=== PATIENT | female | born 1945 | race Caucasian/White ===

== ENCOUNTER 2019-09-30 07:08 | Outpatient (CLI) | payer MEDICARE, OTHER, SELFPAY ==
[2019-09-30 08:00] LABS: Add Urine Microscopic? YES; Appearance Urine Clear (Clear); Bacteria Urine Trace /hpf; Bilirubin Urine Negative (Negative); Blood Urine Negative (Negative); Color Urine Yellow (Yellow); Glucose Urine UA Negative (Negative); Ketones Urine Negative (Negative); Leukocyte Esterase Ur 2+ LEU/UL (NEGATIVE); Nitrate Urine Negative (Negative); Protein Urine Negative (Negative); RBC Urine 0-2 /hpf (0-2); Specific Grav Ur 1.012 (1.001-1.035); Squamous Epithelial Cell Urine Rare /hpf (Few); Transitional Epi Cells Urine Rare /hpf (None Seen); Urobilinogen Urine Negative mg/dL (<2.0); WBC Urine 21-30 /hpf (0-3)
[2019-09-30 08:16] LABS: Alanine Aminotransferase 38 U/L (4-35); Albumin Level 4.6 g/dL (3.5-5.1); Alkaline Phosphatase 49 U/L (38-126); Aspartate Amino Transferase 29 U/L (14-36); Bilirubin,Total 0.5 mg/dL (0.2-1.3); Blood Urea Nitrogen 19 mg/dL (7-17); Carbon Dioxide 30 mmol/L (22-30); Chloride 96 mmol/L (98-107); Cholesterol 217 mg/dL (0-200); Estimated Glomerular Filt Rate 54; Glucose 99 mg/dL (65-105); HDL Direct 48 mg/dL; Sodium 137 mmol/L (137-145); Triglycerides 126 mg/dL (<150)
[2019-09-30 08:27] LABS: LDL Cholesterol Direct 130 mg/dL
[2019-09-30 08:57] LABS: Hemoglobin A1C 5.2 % (<5.7)
[2019-10-02 05:45] LABS: Homocysteine 12.7 umol/L (<10.4)
== END 2019-09-30 07:09 | disposition home or self-care (01) ==
PROVIDERS: PCP Internal Medicine; Visit Provider Internal Medicine
DX: I10 Essential (primary) hypertension (principal); E11.9 Type 2 diabetes mellitus without complications; E78.2 Mixed hyperlipidemia; Z79.899 Other long term (current) drug therapy
CPT/HCPCS: 36415; 80048; 80061; 80076; 81001; 83036; 83090; 84443

== ENCOUNTER 2019-10-21 10:38 | Outpatient (CLI) | payer MEDICARE, OTHER, SELFPAY ==
[2019-10-21 10:57] LABS: Basophils Absolute Auto 0.1 K/mm3 (0.0-0.1); Basophils Percent Auto 0.8 % (0.2-1.2); Eosinophils Absolute Auto 0.2 K/mm3 (0-0.3); Eosinophils Percent Auto 2.5 % (0-4.4); Hematocrit 45.5 % (37.0-47.0); Hemoglobin 14.9 g/dL (12.0-15.0); Immature Granulocyte Absolute 0.04 K/mm3 (0.00-0.031); Immature Granulocyte Percent A 0.6 % (0-0.5); Lymphocytes Absolute Auto 2.18 K/mm3 (0.9-3.2); Lymphocytes Percent Auto 30.2 % (18.3-44.2); Mean Corpuscular HGB Conc 32.7 g/dl (32-36); Mean Corpuscular Hemoglobin 29.1 pg (26-34); Mean Corpuscular Volume 88.9 fl (80-100); Mean Platelet Volume 10.5 fl (7.4-10.4); Monocytes Absolute Auto 0.7 K/mm3 (0.1-0.6); Monocytes Percent Auto 9.7 % (2.6-8.5); Neutrophils Absolute Auto 4.1 K/mm3 (1.3-6.7); Neutrophils Percent Auto 56.2 % (45.5-73.1); Platelet Count Result 204 k/mm3 (150-375); Red Blood Count 5.12 M/mm3 (4.2-5.4); Red Cell Distribution Width 13.2 % (11.5-14.5); White Blood Count 7.2 K/mm3 (4.5-10.0)
[2019-10-21 16:47] LABS: Alanine Aminotransferase 38 U/L (4-35); Albumin Level 4.6 g/dL (3.5-5.1); Alkaline Phosphatase 56 U/L (38-126); Aspartate Amino Transferase 31 U/L (14-36); Bilirubin,Total 0.4 mg/dL (0.2-1.3); Blood Urea Nitrogen 15 mg/dL (7-17); Calcium 9.5 mg/dL (8.4-10.2); Carbon Dioxide 27 mmol/L (22-30); Chloride 98 mmol/L (98-107); Estimated Glomerular Filt Rate > 60; Glucose 104 mg/dL (65-105); Potassium 4.3 mmol/L (3.4-5.0); Sodium 138 mmol/L (137-145)
[2019-10-26 12:40] LABS: BCR/abl Prior Result See Report
[2019-10-26 13:28] LABS: BCR/abl P190 Not Detected; BCR/abl P210 Not Detected
[2019-10-26 13:29] LABS: BCR/abl P190 Chg YES; BCR/abl P210 Chg YES
== END 2019-10-21 10:39 | disposition home or self-care (01) ==
LOC: ANHLAB 10:40
PROVIDERS: PCP Internal Medicine; Visit Provider Internal Medicine Hematology & Oncology
DX: C92.10 Chronic myeloid leukemia, BCR/ABL-positive, not having achieved remission (principal)
CPT/HCPCS: 36415; 80053; 81206; 81207; 85025

== ENCOUNTER 2020-02-03 09:46 | Outpatient (CLI) | payer MEDICARE, OTHER, SELFPAY ==
[2020-02-03 10:51] LABS: Blood Urea Nitrogen 13 mg/dL (7-17); Calcium 9.6 mg/dL (8.4-10.2); Carbon Dioxide 30 mmol/L (22-30); Chloride 101 mmol/L (98-107); Cholesterol 203 mg/dL (0-200); Estimated Glomerular Filt Rate 54; Glucose 114 mg/dL (65-105); HDL Direct 45 mg/dL; Potassium 4.1 mmol/L (3.4-5.0); Sodium 138 mmol/L (137-145); Triglycerides 137 mg/dL (<150)
[2020-02-03 11:03] LABS: LDL Cholesterol Direct 111 mg/dL
[2020-02-03 11:06] LABS: Hemoglobin A1C 5.6 % (<5.7)
[2020-02-07 04:50] LABS: Homocysteine 11.8 umol/L (<10.4)
== END 2020-02-03 09:47 | disposition home or self-care (01) ==
PROVIDERS: PCP Internal Medicine; Visit Provider Internal Medicine
DX: R79.89 Other specified abnormal findings of blood chemistry (principal); E11.9 Type 2 diabetes mellitus without complications; E78.2 Mixed hyperlipidemia; I10 Essential (primary) hypertension
CPT/HCPCS: 36415; 80048; 80061; 83036; 83090

== ENCOUNTER 2020-02-23 08:25 | Outpatient (CLI) | payer MEDICARE, OTHER, SELFPAY ==
[2020-02-23 08:50] LABS: Basophils Percent Auto 0.6 % (0.2-1.2); Eosinophils Absolute Auto 0.2 K/mm3 (0-0.3); Eosinophils Percent Auto 2.6 % (0-4.4); Hematocrit 43.5 % (37.0-47.0); Hemoglobin 14.5 g/dL (12.0-15.0); Immature Granulocyte Absolute 0.04 K/mm3 (0.00-0.031); Immature Granulocyte Percent A 0.6 % (0-0.5); Lymphocytes Absolute Auto 1.68 K/mm3 (0.9-3.2); Lymphocytes Percent Auto 27.3 % (18.3-44.2); Mean Corpuscular HGB Conc 33.3 g/dl (32-36); Mean Corpuscular Hemoglobin 29.4 pg (26-34); Mean Corpuscular Volume 88.1 fl (80-100); Mean Platelet Volume 10.7 fl (7.4-10.4); Monocytes Absolute Auto 0.6 K/mm3 (0.1-0.6); Monocytes Percent Auto 9.1 % (2.6-8.5); Neutrophils Absolute Auto 3.7 K/mm3 (1.3-6.7); Neutrophils Percent Auto 59.8 % (45.5-73.1); Platelet Count Result 175 k/mm3 (150-375); Red Blood Count 4.94 M/mm3 (4.2-5.4); Red Cell Distribution Width 13.2 % (11.5-14.5); White Blood Count 6.2 K/mm3 (4.5-10.0)
[2020-02-23 11:51] LABS: Alanine Aminotransferase 46 U/L (4-35); Albumin Level 4.6 g/dL (3.5-5.1); Alkaline Phosphatase 56 U/L (38-126); Aspartate Amino Transferase 34 U/L (14-36); Bilirubin,Total 0.3 mg/dL (0.2-1.3); Blood Urea Nitrogen 17 mg/dL (7-17); Calcium 9.6 mg/dL (8.4-10.2); Carbon Dioxide 26 mmol/L (22-30); Chloride 100 mmol/L (98-107); Estimated Glomerular Filt Rate > 60; Glucose 117 mg/dL (65-105); Potassium 4.2 mmol/L (3.4-5.0); Sodium 138 mmol/L (137-145)
[2020-02-27 14:57] LABS: BCR/abl Prior Result See Report
[2020-02-27 15:43] LABS: BCR/abl P190 Not Detected; BCR/abl P210 Not Detected
[2020-02-27 15:44] LABS: BCR/abl P190 Chg YES; BCR/abl P210 Chg YES
== END 2020-02-23 08:26 | disposition home or self-care (01) ==
PROVIDERS: PCP Internal Medicine; Visit Provider Internal Medicine Hematology & Oncology
DX: C92.10 Chronic myeloid leukemia, BCR/ABL-positive, not having achieved remission (principal)
CPT/HCPCS: 36415; 80053; 81206; 81207; 85025

== ENCOUNTER 2020-06-01 10:10 | Outpatient (CLI) | payer MEDICARE, OTHER, SELFPAY ==
[2020-06-01 11:03] LABS: Hemoglobin A1C 5.1 % (<5.7)
[2020-06-01 11:09] LABS: Anion Gap 9 mmol/L (8-16); Blood Urea Nitrogen 14 mg/dL (7-17); Calcium 9.8 mg/dL (8.4-10.2); Carbon Dioxide 30 mmol/L (22-30); Chloride 101 mmol/L (98-107); Cholesterol 207 mg/dL (0-200); Estimated Glomerular Filt Rate > 60; Glucose 101 mg/dL (65-105); HDL Direct 45 mg/dL; Potassium 4.1 mmol/L (3.4-5.0); Sodium 140 mmol/L (137-145); Triglycerides 214 mg/dL (<150)
[2020-06-01 11:20] LABS: LDL Cholesterol Direct 109 mg/dL
[2020-06-01 21:37] LABS: Appearance Urine Clear (Clear); Bilirubin Urine Negative (Negative); Color Urine Yellow (Yellow); Glucose Urine UA Negative (Negative); Ketones Urine Negative (Negative); Leukocyte Esterase Ur 1+ LEU/UL (NEGATIVE); Nitrate Urine Negative (Negative); Protein Urine Negative (Negative); Specific Grav Ur 1.015 (1.001-1.035); Urobilinogen Urine 0.2 mg/dL (<2.0); pH Urine 7.5 (5.0-9.0)
[2020-06-01 21:38] LABS: Blood Urine Trace-Intact (Negative)
[2020-06-01 21:40] LABS: Bacteria Urine Trace /hpf; RBC Urine 0-2 /hpf (0-2); Squamous Epithelial Cell Urine Few /hpf (Few); WBC Urine 0-3 /hpf (0-3)
[2020-06-01 21:41] LABS: Add Urine Microscopic? YES
== END 2020-06-01 10:11 | disposition home or self-care (01) ==
PROVIDERS: PCP Internal Medicine; Visit Provider Internal Medicine
DX: E78.2 Mixed hyperlipidemia (principal); E11.9 Type 2 diabetes mellitus without complications; I10 Essential (primary) hypertension; Z79.899 Other long term (current) drug therapy
CPT/HCPCS: 36415; 80048; 80061; 81001; 83036; 84443

== ENCOUNTER 2020-07-27 10:38 | Outpatient (CLI) | payer MEDICARE, OTHER, SELFPAY ==
[2020-07-27 10:56] LABS: Basophils Absolute Auto 0.1 K/mm3 (0.0-0.1); Basophils Percent Auto 0.9 % (0.2-1.2); Eosinophils Absolute Auto 0.2 K/mm3 (0-0.3); Eosinophils Percent Auto 2.5 % (0-4.4); Hematocrit 43.2 % (37.0-47.0); Hemoglobin 14.2 g/dL (12.0-15.0); Immature Granulocyte Absolute 0.02 K/mm3 (0.00-0.031); Immature Granulocyte Percent A 0.3 % (0-0.5); Lymphocytes Absolute Auto 2.17 K/mm3 (0.9-3.2); Lymphocytes Percent Auto 32.1 % (18.3-44.2); Mean Corpuscular HGB Conc 32.9 g/dl (32-36); Mean Corpuscular Hemoglobin 28.8 pg (26-34); Mean Corpuscular Volume 87.6 fl (80-100); Mean Platelet Volume 10.6 fl (7.4-10.4); Monocytes Absolute Auto 0.6 K/mm3 (0.1-0.6); Monocytes Percent Auto 8.4 % (2.6-8.5); Neutrophils Absolute Auto 3.8 K/mm3 (1.3-6.7); Neutrophils Percent Auto 55.8 % (45.5-73.1); Platelet Count Result 185 k/mm3 (150-375); Red Blood Count 4.93 M/mm3 (4.2-5.4); Red Cell Distribution Width 13.1 % (11.5-14.5); White Blood Count 6.8 K/mm3 (4.5-10.0)
[2020-07-27 12:30] LABS: Alanine Aminotransferase 50 U/L (4-35); Albumin Level 4.4 g/dL (3.5-5.1); Alkaline Phosphatase 55 U/L (38-126); Anion Gap 10 mmol/L (8-16); Aspartate Amino Transferase 37 U/L (14-36); Bilirubin,Total 0.6 mg/dL (0.2-1.3); Blood Urea Nitrogen 15 mg/dL (7-17); Carbon Dioxide 28 mmol/L (22-30); Chloride 103 mmol/L (98-107); Estimated Glomerular Filt Rate > 60; Glucose 103 mg/dL (65-105); Potassium 4.2 mmol/L (3.4-5.0); Sodium 141 mmol/L (137-145)
[2020-08-02 15:04] LABS: BCR/abl Prior Result See Report
[2020-08-02 15:52] LABS: BCR/abl P190 Not Detected; BCR/abl P210 Not Detected
[2020-08-02 15:53] LABS: BCR/abl P190 Chg YES; BCR/abl P210 Chg YES
== END 2020-07-27 10:39 | disposition home or self-care (01) ==
LOC: ANHLAB 10:40
PROVIDERS: PCP Internal Medicine; Visit Provider Internal Medicine Hematology & Oncology
DX: C92.10 Chronic myeloid leukemia, BCR/ABL-positive, not having achieved remission (principal)
CPT/HCPCS: 36415; 80053; 81206; 81207; 85025

== ENCOUNTER 2020-08-03 14:38 | Outpatient (CLI) | payer MEDICARE, OTHER, SELFPAY ==
--- NOTE | ~2020-08-03 | XR_ITS ---
XR lumbar spine 6V w bending 08/03/2020 15:11 Indication: Low back pain. Procedure: 7 views lumbar spine Comparison: No prior studies for comparison. Findings: There is loss of disc height at all lumbar levels. There is levoscoliosis. Vertebral body h eights are maintained. There is advanced multilevel facet hypertrophy. Fracture or traumatic malalign ment. No significant alteration of alignment with flexion/extension. Impression: 1: Severe lumbar spondylosis with levoscoliosis. Reviewed, dictated and finalized at location A. LITIES ENGINEERING MANAGER Impression: 1: Severe lumbar spondylosis with levoscoliosis.
== END 2020-08-03 14:39 | disposition home or self-care (01) ==
PROVIDERS: PCP Internal Medicine; Visit Provider Internal Medicine
DX: M47.816 Spondylosis without myelopathy or radiculopathy, lumbar region (principal); M41.9 Scoliosis, unspecified
CPT/HCPCS: 72114

== ENCOUNTER 2020-10-17 17:00 | Outpatient (CLI) | payer MEDICARE, OTHER, SELFPAY | END 2020-10-17 17:01 | disposition home or self-care (01) | LOC: ANHCOVIDVC 17:01 | PROVIDERS: PCP Internal Medicine | DX: Z23 Encounter for immunization (principal) | CPT/HCPCS: 0001A; 91300 ==

== ENCOUNTER 2020-10-25 10:27 | Outpatient (CLI) | payer MEDICARE, SELFPAY ==
[2020-10-25 11:01] LABS: Anion Gap 5 mmol/L (8-16); Blood Urea Nitrogen 16 mg/dL (7-17); Calcium 9.4 mg/dL (8.4-10.2); Carbon Dioxide 31 mmol/L (22-30); Chloride 104 mmol/L (98-107); Cholesterol 213 mg/dL (0-200); Estimated Glomerular Filt Rate 54; Glucose 106 mg/dL (65-105); HDL Direct 52 mg/dL; Potassium 4.1 mmol/L (3.4-5.0); Sodium 140 mmol/L (137-145); Triglycerides 123 mg/dL (<150)
[2020-10-25 11:12] LABS: LDL Cholesterol Direct 121 mg/dL
[2020-10-25 11:50] LABS: Hemoglobin A1C 4.9 % (<5.7)
[2020-10-29 20:05] LABS: Apolipoprotein B 107 mg/dL (<90)
== END 2020-10-25 10:28 | disposition home or self-care (01) ==
LOC: ANHLAB 10:29
PROVIDERS: PCP Internal Medicine; Visit Provider Internal Medicine
DX: E78.2 Mixed hyperlipidemia (principal); E11.9 Type 2 diabetes mellitus without complications; I10 Essential (primary) hypertension; Z79.899 Other long term (current) drug therapy
CPT/HCPCS: 36415; 80048; 80061; 82172; 83036; 84443

== ENCOUNTER 2020-11-07 16:51 | Outpatient (CLI) | payer MEDICARE, OTHER, SELFPAY | END 2020-11-07 16:52 | disposition home or self-care (01) | LOC: ANHCOVIDVC 16:51 | PROVIDERS: PCP Internal Medicine | DX: Z23 Encounter for immunization (principal) | CPT/HCPCS: 0002A; 91300 ==

== ENCOUNTER 2021-01-18 09:19 | Outpatient (CLI) | payer MEDICARE, OTHER, SELFPAY ==
[2021-01-18 09:38] LABS: Basophils Percent Auto 0.6 % (0.2-1.2); Eosinophils Absolute Auto 0.1 K/mm3 (0-0.3); Eosinophils Percent Auto 1.9 % (0-4.4); Hematocrit 42.7 % (37.0-47.0); Hemoglobin 14.2 g/dL (12.0-15.0); Immature Granulocyte Absolute 0.02 K/mm3 (0.00-0.031); Immature Granulocyte Percent A 0.3 % (0-0.5); Lymphocytes Absolute Auto 2.11 K/mm3 (0.9-3.2); Lymphocytes Percent Auto 33.5 % (18.3-44.2); Mean Corpuscular HGB Conc 33.3 g/dl (32-36); Mean Corpuscular Hemoglobin 29.2 pg (26-34); Mean Corpuscular Volume 87.7 fl (80-100); Mean Platelet Volume 10.3 fl (7.4-10.4); Monocytes Absolute Auto 0.6 K/mm3 (0.1-0.6); Monocytes Percent Auto 9.4 % (2.6-8.5); Neutrophils Absolute Auto 3.4 K/mm3 (1.3-6.7); Neutrophils Percent Auto 54.3 % (45.5-73.1); Platelet Count Result 205 k/mm3 (150-375); Red Blood Count 4.87 M/mm3 (4.2-5.4); White Blood Count 6.3 K/mm3 (4.5-10.0)
[2021-01-18 13:58] LABS: Alanine Aminotransferase 44 U/L (4-35); Albumin Level 4.6 g/dL (3.5-5.1); Alkaline Phosphatase 45 U/L (38-126); Anion Gap 9 mmol/L (8-16); Aspartate Amino Transferase 33 U/L (14-36); Bilirubin,Total 0.5 mg/dL (0.2-1.3); Blood Urea Nitrogen 13 mg/dL (7-17); Carbon Dioxide 29 mmol/L (22-30); Chloride 101 mmol/L (98-107); Estimated Glomerular Filt Rate 54; Glucose 100 mg/dL (65-105); Potassium 4.3 mmol/L (3.4-5.0); Sodium 139 mmol/L (137-145)
== END 2021-01-18 09:20 | disposition home or self-care (01) ==
LOC: ANHLAB 09:28
PROVIDERS: PCP Internal Medicine; Visit Provider Internal Medicine Hematology & Oncology
DX: C92.10 Chronic myeloid leukemia, BCR/ABL-positive, not having achieved remission (principal)
CPT/HCPCS: 36415; 80053; 85025

== ENCOUNTER 2021-01-25 14:05 | Outpatient (CLI) | payer MEDICARE, OTHER, SELFPAY ==
[2021-01-30 08:26] LABS: BCR/abl Prior Result See Report
[2021-01-30 09:13] LABS: BCR/abl P190 Not Detected; BCR/abl P210 Not Detected
[2021-01-30 09:14] LABS: BCR/abl P190 Chg YES; BCR/abl P210 Chg YES
== END 2021-01-25 14:06 | disposition home or self-care (01) ==
LOC: ANHLAB 14:15
PROVIDERS: PCP Internal Medicine; Visit Provider Internal Medicine Hematology & Oncology
DX: C92.10 Chronic myeloid leukemia, BCR/ABL-positive, not having achieved remission (principal)
CPT/HCPCS: 36415; 81206; 81207

== ENCOUNTER 2021-02-02 13:06 | Outpatient (CLI) | payer MEDICARE, OTHER, SELFPAY ==
--- NOTE | ~2021-02-02 | DEXA_ITS ---
Bone Density Report Name: Alba Gordon Age: 75 Sex: Female Ethnicity: White Date of : 1945 Indication: postmenopausal; height loss; cancer; asthma or emphysema; hysterectomy; Referring Provider: SEJAL ROD Study: Bone densitometry was performed. Exam Date: February 02, 2021 Accession number: [id number] Bone Density: Region BMD T-score Z-score Classification AP Spine (L1, L2) 1.072 0.8 3.1 Normal Femoral Neck (Left) 0.964 1.0 3.1 Normal Total Hip (Left) 1.077 1.1 2.9 Normal Total Hip Bilateral Avg 1.119 1.5 3.2 Normal Femoral Neck (Right) 1.025 1.6 3.6 Normal Total Hip (Right) 1.159 1.8 3.5 Normal World Health Organization criteria for BMD impression classify patients as: Normal (T-score at or above -1.0), Osteopenia (T-score between -1.0 and -2.5), or Osteoporosis (T-score at or below -2.5). 10-year Fracture Risk: FRAX not reported because: All T-scores for Spine Total, Hip Total, Femoral Neck at or above -1.0 Previous Exams: Region Exam Age BMD T-score BMD Change BMD Change Date g/cm2 vs Baseline vs Previous AP Spine(L1, L2) 02/02/2021 75 1.072 0.8 0.075(7.5%)# 0.075(7.5%)# 12/24/2005 60 0.997 0.2 Total Hip(Left) 02/02/2021 75 1.077 1.1 0.056(5.4%)# 0.056(5.4%)# 12/24/2005 60 1.022 0.7 Total Hip(Right) 02/02/2021 75 1.159 1.8 -0.003(-0.3%)# -0.003(-0.3%)# 12/24/2005 60 1.162 1.8 *Denotes significance at 95% confidence level, LSC for AP Spine = 0.022 g/cm2, LSC for Total Hip = 0.027 g/cm2 Clinical Information Provided by Patient: Has used the following medications: Vitamin D, Calcium Has the following medical conditions: Asthma or Emphysema, Cancer, Hysterectomy Patient maximum height was 70 Menopause Age: 50 No regular weight bearing exercise Drinks caffeinated beverages Onset of menses at age 14 Number of children 0 Impression: The patient has normal bone mass. No significant bone loss was observed. Discussion: LOW RISK OF FRACTURE; BONE DENSITY IS WELL ABOVE THE MINIMUM DESIRABLE LEVEL AND ABOVE AVERAGE FOR AGE AND SEX AT ALL SKELETAL SITES TESTED. This person's bone density is above expected limits for age and sex. This is rarely clinically significant, but should be pursued if there are significant musculoskeletal complaints. The patient should follow a healthful lifestyle (good nutrition with adequate calcium and vitamin D, and appropriate weight-bearing exercise). Follow-Up: Consi
== END 2021-02-02 13:07 | disposition home or self-care (01) ==
PROVIDERS: PCP Internal Medicine; Visit Provider Internal Medicine
DX: Z78.0 Asymptomatic menopausal state (principal)
CPT/HCPCS: 77080

== ENCOUNTER 2021-03-08 08:51 | Outpatient (CLI) | payer MEDICARE, OTHER, SELFPAY ==
[2021-03-08 09:44] LABS: Anion Gap 11 mmol/L (8-16); Blood Urea Nitrogen 19 mg/dL (7-17); Calcium 10.1 mg/dL (8.4-10.2); Carbon Dioxide 27 mmol/L (22-30); Chloride 100 mmol/L (98-107); Cholesterol 228 mg/dL (0-200); Estimated Glomerular Filt Rate 54; Glucose 105 mg/dL (65-110); HDL Direct 56 mg/dL; Sodium 138 mmol/L (137-145); Triglycerides 138 mg/dL (<150)
[2021-03-08 09:55] LABS: LDL Cholesterol Direct 112 mg/dL
[2021-03-08 09:58] LABS: Hemoglobin A1C 5.2 % (<5.7)
[2021-03-08 11:20] LABS: Creatinine Urine 98.9 mg/dL
[2021-03-08 11:25] LABS: MALB Creatinine Ratio 6.8 mg/g (0-30); Microalbumin Urine Random 6.7 mg/L (0-16.7)
[2021-03-11 10:01] LABS: Apolipoprotein B 114 mg/dL (<90)
== END 2021-03-08 08:52 | disposition home or self-care (01) ==
PROVIDERS: PCP Internal Medicine; Visit Provider Internal Medicine
DX: E11.9 Type 2 diabetes mellitus without complications (principal); E78.2 Mixed hyperlipidemia; I10 Essential (primary) hypertension
CPT/HCPCS: 36415; 80048; 80061; 82043; 82172; 83036

== ENCOUNTER 2021-07-06 11:19 | Outpatient (CLI) | payer MEDICARE, OTHER, SELFPAY ==
--- NOTE | ~2021-07-06 | US_ITS ---
EXAMINATION: US soft tissue UE RT DATE: 07/06/2021 11:39 INDICATION: Right upper arm lump. TECHNIQUE: Multiple grayscale and Doppler ultrasound images of the right upper arm were obtained. COMPARISON: None FINDINGS: There is a 3.5 x 1.5 x 3.3 cm subcutaneous hyperechoic mass in the patient's area of concer n. The echotexture is similar to subcutaneous fat. IMPRESSION: 1. 3.5 cm subcutaneous mass in right upper arm in the patient's area of concern, most likely inflamma tion or a lipoma. Reviewed, dictated and finalized at location A. PAINTER IMPRESSION: 1. 3.5 cm subcutaneous mass in right upper arm in the patient's area of concern , most likely inflammation or a lipoma.
== END 2021-07-06 11:20 | disposition home or self-care (01) ==
PROVIDERS: PCP Internal Medicine; Visit Provider Internal Medicine
DX: R22.31 Localized swelling, mass and lump, right upper limb (principal)
CPT/HCPCS: 76882

== ENCOUNTER 2021-07-11 09:52 | Outpatient (CLI) | payer MEDICARE, OTHER, SELFPAY ==
[2021-07-11 10:17] LABS: Basophils Absolute Auto 0.1 K/mm3 (0.0-0.1); Basophils Percent Auto 0.8 % (0.2-1.2); Eosinophils Absolute Auto 0.2 K/mm3 (0-0.3); Eosinophils Percent Auto 2.3 % (0-4.4); Hematocrit 47.8 % (37.0-47.0); Hemoglobin 16.3 g/dL (12.0-15.0); Immature Granulocyte Absolute 0.05 K/mm3 (0.00-0.031); Immature Granulocyte Percent A 0.7 % (0-0.5); Lymphocytes Absolute Auto 2.54 K/mm3 (0.9-3.2); Lymphocytes Percent Auto 34.3 % (18.3-44.2); Mean Corpuscular HGB Conc 34.1 g/dl (32-36); Mean Corpuscular Hemoglobin 30.4 pg (26-34); Mean Corpuscular Volume 89.2 fl (80-100); Monocytes Absolute Auto 0.6 K/mm3 (0.1-0.6); Monocytes Percent Auto 8.1 % (2.6-8.5); Neutrophils Percent Auto 53.8 % (45.5-73.1); Platelet Count Result 211 k/mm3 (150-375); Red Blood Count 5.36 M/mm3 (4.2-5.4); Red Cell Distribution Width 12.4 % (11.5-14.5); White Blood Count 7.4 K/mm3 (4.5-10.0)
[2021-07-11 12:10] LABS: Free T4 Free Thyroxine 1.09 ng/mL (0.78-2.19); Vitamin D 25 Hydroxy 50.2 ng/mL
[2021-07-11 12:43] LABS: Alanine Aminotransferase 36 U/L (4-35); Albumin Level 4.6 g/dL (3.5-5.1); Alkaline Phosphatase 46 U/L (38-126); Anion Gap 6 mmol/L (8-16); Aspartate Amino Transferase 33 U/L (14-36); Bilirubin,Total 0.6 mg/dL (0.2-1.3); Blood Urea Nitrogen 18 mg/dL (7-17); Calcium 10.3 mg/dL (8.4-10.2); Carbon Dioxide 33 mmol/L (22-30); Chloride 102 mmol/L (98-107); Cholesterol 197 mg/dL (0-200); Estimated Glomerular Filt Rate > 60; Glucose 119 mg/dL (65-110); HDL Direct 48 mg/dL; Sodium 141 mmol/L (137-145); Triglycerides 230 mg/dL (<150)
[2021-07-11 12:54] LABS: LDL Cholesterol Direct 86 mg/dL
== END 2021-07-11 09:53 | disposition home or self-care (01) ==
LOC: ANHLAB 09:54
PROVIDERS: PCP Internal Medicine; Visit Provider Internal Medicine
DX: I10 Essential (primary) hypertension (principal); E78.2 Mixed hyperlipidemia; Z79.899 Other long term (current) drug therapy; E11.9 Type 2 diabetes mellitus without complications; E55.9 Vitamin D deficiency, unspecified
CPT/HCPCS: 36415; 80053; 80061; 82306; 83036; 84439; 84443; 85025

== ENCOUNTER 2021-07-19 09:51 | Outpatient (CLI) | payer MEDICARE, OTHER, SELFPAY ==
[2021-07-19 10:20] LABS: Basophils Absolute Auto 0.1 K/mm3 (0.0-0.1); Basophils Percent Auto 0.7 % (0.2-1.2); Eosinophils Absolute Auto 0.1 K/mm3 (0-0.3); Hematocrit 47.1 % (37.0-47.0); Hemoglobin 15.9 g/dL (12.0-15.0); Immature Granulocyte Absolute 0.03 K/mm3 (0.00-0.031); Immature Granulocyte Percent A 0.4 % (0-0.5); Lymphocytes Absolute Auto 2.32 K/mm3 (0.9-3.2); Lymphocytes Percent Auto 33.7 % (18.3-44.2); Mean Corpuscular HGB Conc 33.8 g/dl (32-36); Mean Corpuscular Hemoglobin 29.2 pg (26-34); Mean Corpuscular Volume 86.4 fl (80-100); Mean Platelet Volume 9.7 fl (7.4-10.4); Monocytes Absolute Auto 0.6 K/mm3 (0.1-0.6); Monocytes Percent Auto 8.6 % (2.6-8.5); Neutrophils Absolute Auto 3.8 K/mm3 (1.3-6.7); Neutrophils Percent Auto 54.6 % (45.5-73.1); Platelet Count Result 211 k/mm3 (150-375); Red Blood Count 5.45 M/mm3 (4.2-5.4); Red Cell Distribution Width 12.3 % (11.5-14.5); White Blood Count 6.9 K/mm3 (4.5-10.0)
[2021-07-19 12:24] LABS: Alanine Aminotransferase 39 U/L (4-35); Albumin Level 4.7 g/dL (3.5-5.1); Alkaline Phosphatase 46 U/L (38-126); Anion Gap 9 mmol/L (8-16); Aspartate Amino Transferase 32 U/L (14-36); Bilirubin,Total 0.7 mg/dL (0.2-1.3); Blood Urea Nitrogen 15 mg/dL (7-17); Calcium 10.1 mg/dL (8.4-10.2); Carbon Dioxide 30 mmol/L (22-30); Chloride 96 mmol/L (98-107); Estimated Glomerular Filt Rate > 60; Glucose 108 mg/dL (65-110); Potassium 3.9 mmol/L (3.4-5.0); Sodium 135 mmol/L (137-145)
[2021-07-24 11:59] LABS: BCR/abl Prior Result See Report; BCR/abl1/abl1% (IS) 0.007 %
[2021-07-24 12:45] LABS: BCR/abl P190 Not Detected; BCR/abl P210 Detected
[2021-07-24 12:46] LABS: BCR/abl P190 Chg YES; BCR/abl P210 Chg YES
== END 2021-07-19 09:52 | disposition home or self-care (01) ==
LOC: ANHLAB 09:53
PROVIDERS: PCP Internal Medicine; Visit Provider Internal Medicine Hematology & Oncology
DX: C92.10 Chronic myeloid leukemia, BCR/ABL-positive, not having achieved remission (principal)
CPT/HCPCS: 36415; 80053; 81206; 81207; 85025

== ENCOUNTER 2021-11-13 10:33 | Outpatient (CLI) | payer MEDICARE, OTHER, SELFPAY ==
[2021-11-13 10:56] LABS: Basophils Absolute Auto 0.1 K/mm3 (0.0-0.1); Eosinophils Absolute Auto 0.2 K/mm3 (0-0.3); Eosinophils Percent Auto 2.2 % (0-4.4); Hematocrit 48.5 % (37.0-47.0); Hemoglobin 15.5 g/dL (12.0-15.0); Immature Granulocyte Absolute 0.04 K/mm3 (0.00-0.031); Immature Granulocyte Percent A 0.6 % (0-0.5); Lymphocytes Absolute Auto 2.85 K/mm3 (0.9-3.2); Lymphocytes Percent Auto 41.1 % (18.3-44.2); Mean Corpuscular Hemoglobin 29.4 pg (26-34); Mean Platelet Volume 10.2 fl (7.4-10.4); Monocytes Absolute Auto 0.5 K/mm3 (0.1-0.6); Monocytes Percent Auto 7.3 % (2.6-8.5); Neutrophils Absolute Auto 3.3 K/mm3 (1.3-6.7); Neutrophils Percent Auto 47.8 % (45.5-73.1); Platelet Count Result 232 k/mm3 (150-375); Red Blood Count 5.27 M/mm3 (4.2-5.4); Red Cell Distribution Width 12.5 % (11.5-14.5); White Blood Count 6.9 K/mm3 (4.5-10.0)
[2021-11-13 12:53] LABS: Alanine Aminotransferase 46 U/L (4-35); Albumin Level 4.4 g/dL (3.5-5.1); Alkaline Phosphatase 53 U/L (38-126); Anion Gap 9 mmol/L (8-16); Aspartate Amino Transferase 36 U/L (14-36); Bilirubin,Total 0.5 mg/dL (0.2-1.3); Blood Urea Nitrogen 12 mg/dL (7-17); Calcium 9.4 mg/dL (8.4-10.2); Carbon Dioxide 28 mmol/L (22-30); Chloride 102 mmol/L (98-107); Estimated Glomerular Filt Rate > 60; Glucose 107 mg/dL (65-110); Potassium 3.9 mmol/L (3.4-5.0); Sodium 139 mmol/L (137-145)
[2021-11-16 15:28] LABS: BCR/abl Prior Result See Report
[2021-11-16 15:54] LABS: BCR/abl P210 Detected
[2021-11-16 15:55] LABS: BCR/abl P210 Chg YES
== END 2021-11-13 10:34 | disposition home or self-care (01) ==
PROVIDERS: PCP Internal Medicine; Visit Provider Internal Medicine Hematology & Oncology
DX: C92.10 Chronic myeloid leukemia, BCR/ABL-positive, not having achieved remission (principal)
CPT/HCPCS: 36415; 80053; 81207; 85025

== ENCOUNTER 2021-11-23 07:27 | Outpatient (CLI) | payer MEDICARE, OTHER, SELFPAY ==
[2021-11-23 08:06] LABS: Alanine Aminotransferase 45 U/L (4-35); Albumin Level 4.5 g/dL (3.5-5.1); Alkaline Phosphatase 49 U/L (38-126); Anion Gap 8 mmol/L (8-16); Aspartate Amino Transferase 38 U/L (14-36); Bilirubin,Total 0.5 mg/dL (0.2-1.3); Blood Urea Nitrogen 16 mg/dL (7-17); Calcium 9.7 mg/dL (8.4-10.2); Carbon Dioxide 28 mmol/L (22-30); Chloride 102 mmol/L (98-107); Cholesterol 179 mg/dL (0-200); Estimated Glomerular Filt Rate > 60; Glucose 114 mg/dL (65-110); HDL Direct 51 mg/dL; Potassium 3.9 mmol/L (3.4-5.0); Sodium 138 mmol/L (137-145); Triglycerides 159 mg/dL (<150)
[2021-11-23 08:17] LABS: LDL Cholesterol Direct 86 mg/dL
[2021-11-23 08:18] LABS: Hemoglobin A1C 5.2 % (<5.7)
[2021-11-23 08:28] LABS: Creatinine Urine 62.2 mg/dL
[2021-11-23 08:33] LABS: MALB Creatinine Ratio 10.1 mg/g (0-30); Microalbumin Urine Random 6.3 mg/L (0-16.7)
[2021-11-26 13:43] LABS: Apolipoprotein B 87 mg/dL (<90)
== END 2021-11-23 07:28 | disposition home or self-care (01) ==
LOC: ANHLAB 07:31
PROVIDERS: PCP Internal Medicine; Visit Provider Internal Medicine
DX: E11.9 Type 2 diabetes mellitus without complications (principal); E78.2 Mixed hyperlipidemia; Z13.29 Encounter for screening for other suspected endocrine disorder; Z79.899 Other long term (current) drug therapy; I10 Essential (primary) hypertension
CPT/HCPCS: 36415; 80053; 80061; 82043; 82172; 83036; 84439; 84443

== ENCOUNTER 2021-11-30 14:52 | Outpatient (CLI) | payer MEDICARE, OTHER, SELFPAY ==
--- NOTE | ~2021-11-30 | XR_ITS ---
XR hip LT 2V w AP pelvis DATE: 11/30/2021 15:19 INDICATION: Left hip pain TECHNIQUE: AP pelvis. AP and lateral views of left hip COMPARISON: 05/20/2018 CT pelvis FINDINGS: There is prominent rotatory levoscoliosis and multilevel degenerative disc disease of the l umbar spine. The pubic symphysis and sacroiliac joints are intact. There is a probable bone island of the superomedial aspect of the left iliac crest. No pelvic fracture or bone destruction is detected. There is moderate bilateral hip osteoarthritis. No fracture, dislocation, avascular necrosis or bone destruction of the left hip is noted. IMPRESSION: Moderate bilateral hip osteoarthritis Reviewed, dictated and finalized at location A.
--- NOTE | ~2021-11-30 | XR_ITS ---
XR lumbar spine 2-3V DATE: 11/30/2021 15:18 INDICATION: Chronic low back pain, left hip pain TECHNIQUE: AP, lateral, coned lateral lumbosacral views COMPARISON: 08/03/2020 lumbar spine FINDINGS: Again noted is prominent rotatory levoscoliosis of the lumbar spine with multilevel moderat e to moderately severe degenerative disc disease. No fracture or bone destruction is evident. The sacroiliac joints are intact. Status post cholecystectomy. IMPRESSION: Rotatory levoscoliosis and multilevel degenerative disc disease Reviewed, dictated and finalized at location A.
== END 2021-11-30 14:53 | disposition home or self-care (01) ==
LOC: ANHIMG 14:54
PROVIDERS: PCP Internal Medicine; Visit Provider Internal Medicine
DX: M51.36 Other intervertebral disc degeneration, lumbar region (principal); M16.0 Bilateral primary osteoarthritis of hip
CPT/HCPCS: 72100; 73502

== ENCOUNTER 2022-03-15 10:05 | Outpatient (CLI) | payer MEDICARE, OTHER, SELFPAY ==
[2022-03-15 10:28] LABS: Basophils Absolute Auto 0.2 K/mm3 (0.0-0.1); Basophils Percent Auto 2.8 % (0.2-1.2); Eosinophils Absolute Auto 0.2 K/mm3 (0-0.3); Eosinophils Percent Auto 2.7 % (0-4.4); Hematocrit 47.8 % (37.0-47.0); Hemoglobin 15.7 g/dL (12.0-15.0); Immature Granulocyte Absolute 0.05 K/mm3 (0.00-0.031); Immature Granulocyte Percent A 0.7 % (0-0.5); Lymphocytes Absolute Auto 2.72 K/mm3 (0.9-3.2); Lymphocytes Percent Auto 40.2 % (18.3-44.2); Mean Corpuscular HGB Conc 32.8 g/dl (32-36); Mean Corpuscular Hemoglobin 29.2 pg (26-34); Mean Platelet Volume 9.8 fl (7.4-10.4); Monocytes Absolute Auto 0.5 K/mm3 (0.1-0.6); Monocytes Percent Auto 7.7 % (2.6-8.5); Neutrophils Absolute Auto 3.1 K/mm3 (1.3-6.7); Neutrophils Percent Auto 45.9 % (45.5-73.1); Platelet Count Result 208 k/mm3 (150-375); Red Blood Count 5.37 M/mm3 (4.2-5.4); Red Cell Distribution Width 12.1 % (11.5-14.5); White Blood Count 6.8 K/mm3 (4.5-10.0)
[2022-03-15 14:07] LABS: Alanine Aminotransferase 73 U/L (6-35); Albumin Level 4.5 g/dL (3.5-5.1); Alkaline Phosphatase 54 U/L (38-126); Anion Gap 10 mmol/L (8-16); Aspartate Amino Transferase 50 U/L (14-36); Bilirubin,Total 0.5 mg/dL (0.2-1.3); Blood Urea Nitrogen 15 mg/dL (7-17); Calcium 9.5 mg/dL (8.4-10.2); Carbon Dioxide 27 mmol/L (22-30); Chloride 102 mmol/L (98-107); Estimated Glomerular Filt Rate > 60; Glucose 98 mg/dL (65-110); Potassium 4.3 mmol/L (3.4-5.0); Sodium 139 mmol/L (137-145)
[2022-03-21 15:48] LABS: BCR/abl Prior Result See Report; BCR/abl1/abl1% (IS) 7.689 %
[2022-03-21 16:33] LABS: BCR/abl P210 Detected
[2022-03-21 16:34] LABS: BCR/abl P210 Chg YES
== END 2022-03-15 10:06 | disposition home or self-care (01) ==
LOC: ANHLAB 10:07
PROVIDERS: PCP Internal Medicine; Visit Provider Internal Medicine Hematology & Oncology
DX: C92.10 Chronic myeloid leukemia, BCR/ABL-positive, not having achieved remission (principal)
CPT/HCPCS: 36415; 80053; 81207; 85025

== ENCOUNTER 2022-04-09 09:24 | Outpatient (CLI) | payer MEDICARE, OTHER, SELFPAY ==
[2022-04-09 11:48] LABS: Alanine Aminotransferase 89 U/L (6-35); Albumin Level 4.6 g/dL (3.5-5.1); Alkaline Phosphatase 46 U/L (38-126); Anion Gap 12 mmol/L (8-16); Aspartate Amino Transferase 69 U/L (14-36); Bilirubin,Total 0.9 mg/dL (0.2-1.3); Blood Urea Nitrogen 14 mg/dL (7-17); Calcium 10.1 mg/dL (8.4-10.2); Carbon Dioxide 25 mmol/L (22-30); Chloride 99 mmol/L (98-107); Cholesterol 188 mg/dL (0-200); Estimated Glomerular Filt Rate > 60; Glucose 95 mg/dL (65-110); HDL Direct 43 mg/dL; Sodium 136 mmol/L (137-145); Triglycerides 192 mg/dL (<150)
[2022-04-09 11:56] LABS: LDL Cholesterol Direct 100 mg/dL
[2022-04-09 12:06] LABS: Hemoglobin A1C 5.4 % (<5.7)
== END 2022-04-09 09:25 | disposition home or self-care (01) ==
LOC: ANHLAB 09:26
PROVIDERS: PCP Internal Medicine; Visit Provider Internal Medicine
DX: I10 Essential (primary) hypertension (principal); E78.2 Mixed hyperlipidemia; E11.9 Type 2 diabetes mellitus without complications
CPT/HCPCS: 36415; 80053; 80061; 83036

== ENCOUNTER 2022-06-21 09:01 | Outpatient (CLI) | payer MEDICARE, OTHER, SELFPAY ==
[2022-06-21 09:28] LABS: Basophils Absolute Auto 0.1 K/mm3 (0.0-0.1); Basophils Percent Auto 0.9 % (0.2-1.2); Eosinophils Absolute Auto 0.2 K/mm3 (0-0.3); Eosinophils Percent Auto 2.8 % (0-4.4); Hematocrit 44.6 % (37.0-47.0); Hemoglobin 15.1 g/dL (12.0-15.0); Immature Granulocyte Absolute 0.03 K/mm3 (0.00-0.031); Immature Granulocyte Percent A 0.5 % (0-0.5); Lymphocytes Absolute Auto 2.21 K/mm3 (0.9-3.2); Mean Corpuscular HGB Conc 33.9 g/dl (32-36); Mean Corpuscular Hemoglobin 30.1 pg (26-34); Mean Corpuscular Volume 88.8 fl (80-100); Mean Platelet Volume 10.6 fl (7.4-10.4); Monocytes Absolute Auto 0.6 K/mm3 (0.1-0.6); Monocytes Percent Auto 8.9 % (2.6-8.5); Neutrophils Absolute Auto 3.4 K/mm3 (1.3-6.7); Neutrophils Percent Auto 52.9 % (45.5-73.1); Platelet Count Result 221 k/mm3 (150-375); Red Blood Count 5.02 M/mm3 (4.2-5.4); Red Cell Distribution Width 12.3 % (11.5-14.5); White Blood Count 6.5 K/mm3 (4.5-10.0)
[2022-06-21 11:24] LABS: Alanine Aminotransferase 76 U/L (6-35); Albumin Level 4.8 g/dL (3.5-5.1); Alkaline Phosphatase 53 U/L (38-126); Anion Gap 12 mmol/L (8-16); Aspartate Amino Transferase 52 U/L (14-36); Bilirubin,Total 0.6 mg/dL (0.2-1.3); Blood Urea Nitrogen 15 mg/dL (7-17); Calcium 9.5 mg/dL (8.4-10.2); Carbon Dioxide 26 mmol/L (22-30); Chloride 99 mmol/L (98-107); Estimated Glomerular Filt Rate > 60; Glucose 103 mg/dL (65-110); Potassium 4.1 mmol/L (3.4-5.0); Sodium 137 mmol/L (137-145)
[2022-06-27 14:37] LABS: BCR/abl Prior Result See Report; BCR/abl1/abl1% (IS) 1.018 %
[2022-06-27 15:24] LABS: BCR/abl P210 Detected
[2022-06-27 15:25] LABS: BCR/abl P210 Chg YES
== END 2022-06-21 09:02 | disposition home or self-care (01) ==
LOC: ANHLAB 09:04
PROVIDERS: PCP Internal Medicine; Visit Provider Internal Medicine Hematology & Oncology
DX: C92.10 Chronic myeloid leukemia, BCR/ABL-positive, not having achieved remission (principal)
CPT/HCPCS: 36415; 80053; 81207; 85025

== ENCOUNTER 2022-08-16 08:07 | Outpatient (CLI) | payer MEDICARE, OTHER, SELFPAY ==
[2022-08-16 09:20] LABS: Cholesterol 204 mg/dL (0-200); HDL Direct 53 mg/dL; Triglycerides 216 mg/dL (<150)
[2022-08-16 09:32] LABS: LDL Cholesterol Direct 101 mg/dL
[2022-08-16 09:40] LABS: Free T4 Free Thyroxine 1.17 ng/mL (0.78-2.19)
[2022-08-16 09:56] LABS: Add Urine Microscopic? NO; Appearance Urine Clear (Clear); Bilirubin Urine Negative (Negative); Blood Urine Negative (Negative); Color Urine Light Yellow (Yellow); Glucose Urine UA Negative (Negative); Ketones Urine Negative (Negative); Leukocyte Esterase Ur Negative LEU/UL (Negative); Nitrate Urine Negative (Negative); Protein Urine Negative (Negative); Urobilinogen Urine 0.2 mg/dL (<2.0)
[2022-08-16 10:09] LABS: Hemoglobin A1C 5.3 % (<5.7)
== END 2022-08-16 08:08 | disposition home or self-care (01) ==
LOC: ANHLAB 08:09
PROVIDERS: PCP Internal Medicine; Visit Provider Internal Medicine
DX: Z51.81 Encounter for therapeutic drug level monitoring (principal); Z79.899 Other long term (current) drug therapy; Z13.29 Encounter for screening for other suspected endocrine disorder; E11.9 Type 2 diabetes mellitus without complications; E78.2 Mixed hyperlipidemia
CPT/HCPCS: 36415; 80061; 81003; 83036; 84439; 84443

== ENCOUNTER 2022-09-19 08:13 | Outpatient (CLI) | payer MEDICARE, OTHER, SELFPAY ==
[2022-09-19 12:12] LABS: Basophils Absolute Auto 0.1 K/mm3 (0.0-0.1); Basophils Percent Auto 0.7 % (0.2-1.2); Eosinophils Absolute Auto 0.2 K/mm3 (0-0.3); Eosinophils Percent Auto 2.4 % (0-4.4); Hemoglobin 15.1 g/dL (12.0-15.0); Immature Granulocyte Absolute 0.05 K/mm3 (0.00-0.031); Immature Granulocyte Percent A 0.7 % (0-0.5); Lymphocytes Absolute Auto 2.03 K/mm3 (0.9-3.2); Lymphocytes Percent Auto 27.3 % (18.3-44.2); Mean Corpuscular HGB Conc 33.6 g/dl (32-36); Mean Corpuscular Hemoglobin 29.6 pg (26-34); Mean Corpuscular Volume 88.2 fl (80-100); Mean Platelet Volume 10.7 fl (7.4-10.4); Monocytes Absolute Auto 0.7 K/mm3 (0.1-0.6); Monocytes Percent Auto 9.1 % (2.6-8.5); Neutrophils Absolute Auto 4.5 K/mm3 (1.3-6.7); Neutrophils Percent Auto 59.8 % (45.5-73.1); Platelet Count Result 263 k/mm3 (150-375); Red Cell Distribution Width 12.5 % (11.5-14.5); White Blood Count 7.4 K/mm3 (4.5-10.0)
[2022-09-19 13:05] LABS: Alanine Aminotransferase 43 U/L (6-35); Albumin Level 4.3 g/dL (3.5-5.1); Alkaline Phosphatase 55 U/L (38-126); Anion Gap 7 mmol/L (8-16); Aspartate Amino Transferase 39 U/L (14-36); Bilirubin,Total 0.6 mg/dL (0.2-1.3); Blood Urea Nitrogen 16 mg/dL (7-17); Calcium 9.2 mg/dL (8.4-10.2); Carbon Dioxide 29 mmol/L (22-30); Chloride 97 mmol/L (98-107); Estimated Glomerular Filt Rate 54; Glucose 100 mg/dL (65-110); Potassium 4.2 mmol/L (3.4-5.0); Sodium 133 mmol/L (137-145)
[2022-09-22 15:24] LABS: BCR/abl Prior Result See Report; BCR/abl1/abl1% (IS) 0.003 %
[2022-09-22 16:13] LABS: BCR/abl P210 Detected; BCR/abl P210 Chg YES
== END 2022-09-19 08:14 | disposition home or self-care (01) ==
PROVIDERS: PCP Internal Medicine; Visit Provider Internal Medicine Hematology & Oncology
DX: C92.10 Chronic myeloid leukemia, BCR/ABL-positive, not having achieved remission (principal)
CPT/HCPCS: 36415; 80053; 81207; 85025

== ENCOUNTER 2022-12-12 08:24 | Outpatient (CLI) | payer MEDICARE, OTHER, SELFPAY ==
[2022-12-12 08:45] LABS: Basophils Absolute Auto 0.1 K/mm3 (0.0-0.1); Basophils Percent Auto 0.7 % (0.2-1.2); Eosinophils Absolute Auto 0.1 K/mm3 (0-0.3); Hematocrit 43.8 % (37.0-47.0); Hemoglobin 14.8 g/dL (12.0-15.0); Immature Granulocyte Absolute 0.04 K/mm3 (0.00-0.031); Immature Granulocyte Percent A 0.6 % (0-0.5); Lymphocytes Absolute Auto 1.88 K/mm3 (0.9-3.2); Lymphocytes Percent Auto 26.7 % (18.3-44.2); Mean Corpuscular HGB Conc 33.8 g/dl (32-36); Mean Corpuscular Hemoglobin 29.5 pg (26-34); Mean Corpuscular Volume 87.4 fl (80-100); Mean Platelet Volume 9.9 fl (7.4-10.4); Monocytes Absolute Auto 0.7 K/mm3 (0.1-0.6); Monocytes Percent Auto 10.1 % (2.6-8.5); Neutrophils Absolute Auto 4.2 K/mm3 (1.3-6.7); Neutrophils Percent Auto 59.9 % (45.5-73.1); Platelet Count Result 235 k/mm3 (150-375); Red Blood Count 5.01 M/mm3 (4.2-5.4); Red Cell Distribution Width 12.6 % (11.5-14.5)
[2022-12-12 09:28] LABS: Alanine Aminotransferase 44 U/L (6-35); Albumin Level 4.8 g/dL (3.5-5.1); Alkaline Phosphatase 47 U/L (38-126); Anion Gap 7 mmol/L (8-16); Aspartate Amino Transferase 30 U/L (14-36); Bilirubin,Total 0.7 mg/dL (0.2-1.3); Blood Urea Nitrogen 20 mg/dL (7-17); Calcium 9.4 mg/dL (8.4-10.2); Carbon Dioxide 32 mmol/L (22-30); Chloride 94 mmol/L (98-107); Estimated Glomerular Filt Rate > 60; Glucose 108 mg/dL (65-110); Potassium 4.1 mmol/L (3.4-5.0); Sodium 133 mmol/L (137-145)
[2022-12-16 11:53] LABS: BCR/abl Prior Result See Report
[2022-12-16 12:40] LABS: BCR/abl P210 Not Detected
[2022-12-16 12:41] LABS: BCR/abl P210 Chg YES
== END 2022-12-12 08:25 | disposition home or self-care (01) ==
LOC: ANHLAB 08:27
PROVIDERS: PCP Internal Medicine; Visit Provider Internal Medicine Hematology & Oncology
DX: C92.10 Chronic myeloid leukemia, BCR/ABL-positive, not having achieved remission (principal)
CPT/HCPCS: 36415; 80053; 81207; 85025

== ENCOUNTER 2022-12-24 08:17 | Outpatient (CLI) | payer MEDICARE, OTHER, SELFPAY ==
[2022-12-24 08:35] LABS: Basophils Absolute Auto 0.1 K/mm3 (0.0-0.1); Basophils Percent Auto 0.7 % (0.2-1.2); Eosinophils Absolute Auto 0.2 K/mm3 (0-0.3); Eosinophils Percent Auto 2.4 % (0-4.4); Hemoglobin 14.4 g/dL (12.0-15.0); Immature Granulocyte Absolute 0.05 K/mm3 (0.00-0.031); Immature Granulocyte Percent A 0.7 % (0-0.5); Lymphocytes Absolute Auto 2.38 K/mm3 (0.9-3.2); Lymphocytes Percent Auto 31.5 % (18.3-44.2); Mean Corpuscular HGB Conc 33.5 g/dl (32-36); Mean Corpuscular Hemoglobin 29.4 pg (26-34); Mean Corpuscular Volume 87.8 fl (80-100); Mean Platelet Volume 10.4 fl (7.4-10.4); Monocytes Absolute Auto 0.6 K/mm3 (0.1-0.6); Monocytes Percent Auto 7.9 % (2.6-8.5); Neutrophils Absolute Auto 4.3 K/mm3 (1.3-6.7); Neutrophils Percent Auto 56.8 % (45.5-73.1); Platelet Count Result 226 k/mm3 (150-375); White Blood Count 7.6 K/mm3 (4.5-10.0)
[2022-12-24 08:45] LABS: Alanine Aminotransferase 41 U/L (6-35); Albumin Level 4.8 g/dL (3.5-5.1); Alkaline Phosphatase 42 U/L (38-126); Anion Gap 9 mmol/L (8-16); Aspartate Amino Transferase 34 U/L (14-36); Bilirubin,Total 0.7 mg/dL (0.2-1.3); Blood Urea Nitrogen 15 mg/dL (7-17); Calcium 9.5 mg/dL (8.4-10.2); Carbon Dioxide 25 mmol/L (22-30); Chloride 100 mmol/L (98-107); Cholesterol 177 mg/dL (0-200); Estimated Glomerular Filt Rate > 60; Glucose 102 mg/dL (65-110); HDL Direct 63 mg/dL; Sodium 134 mmol/L (137-145); Triglycerides 111 mg/dL (<150)
[2022-12-24 08:46] LABS: Hemoglobin A1C 5.3 % (<5.7)
[2022-12-24 08:56] LABS: LDL Cholesterol Direct 83 mg/dL
[2022-12-24 09:01] LABS: Creatinine Urine 99.7 mg/dL
[2022-12-24 09:16] LABS: Free T4 Free Thyroxine 1.26 ng/mL (0.78-2.19)
== END 2022-12-24 08:18 | disposition home or self-care (01) ==
PROVIDERS: PCP Internal Medicine; Visit Provider Internal Medicine
DX: E11.9 Type 2 diabetes mellitus without complications (principal); Z13.29 Encounter for screening for other suspected endocrine disorder; Z79.899 Other long term (current) drug therapy; E78.2 Mixed hyperlipidemia; I10 Essential (primary) hypertension
CPT/HCPCS: 36415; 80053; 80061; 82043; 83036; 84439; 84443; 85025

== ENCOUNTER 2022-12-31 14:09 | Outpatient (CLI) | payer MEDICARE, OTHER, SELFPAY ==
[2022-12-31 15:09] LABS: Prothrombin Time 13.7 Seconds (11.1-14.7)
[2022-12-31 15:10] LABS: Partial Thromboplastin Time 35.2 SECONDS (22.3-36.8)
== END 2022-12-31 14:10 | disposition home or self-care (01) ==
LOC: ANHLAB 14:10
PROVIDERS: PCP Internal Medicine; Visit Provider Internal Medicine
DX: I48.91 Unspecified atrial fibrillation (principal)
CPT/HCPCS: 36415; 85610; 85730

== ENCOUNTER 2023-02-05 09:22 | Outpatient (CLI) | payer MEDICARE, OTHER, SELFPAY ==
--- NOTE | 2023-02-05 09:59 | ECHO_ITS ---
Patient Info Name: Alba Gordon Age: 77 years : 1945 Gender: Female Ht: 69 in Wt: 250 lbs BSA: 2.40 m2 HR: 75 bpm BP: 136 / 85 mmHg Heart Rhythm: Atrial Fibrillation Technical Quality: Fair Exam Date: 02/05/2023 10:08 AM Exam Location: [facility] Pulmonary Patient Status: Outpatient Admit Date: 02/05/2023 Staff Ordering Physician: Demetrio Torres MD Usability Architect: Sadie Ann RDCS Attending Provider: Demetrio Torres MD Referring Physician: Brian ALONSO; Exam Type: CA echo doppler color flow Study Info Indications R06.02 - Shortness of breath Complete two-dimensional, color flow and Doppler transthoracic echocardiogram is performed. Summary 1. Complete two-dimensional, color flow and Doppler transthoracic echocardiogram is performed. 2. Left ventricular chamber dimension is normal. 3. Left ventricular systolic function is normal, estimated at 65-70%. 4. There is mild concentric increased left ventricular wall thickness. 5. The left ventricular diastolic function is normal. 6. E/e' 7 is not elevated. 7. Atrial fibrillation. 8. Left atrial chamber dimension is moderately enlarged. 9. Right atrial chamber dimension is moderately enlarged. 10. There is mild aortic valve sclerosis. 11. No pulmonary hypertension, estimated pulmonary arterial systolic pressure is 39 mmHg. Left Ventricle E/e' 7 is not elevated. Atrial fibrillation. Left ventricular chamber dimension is normal. Left ventricular systolic function is normal, estimated at 65-70%. There is mild concentric increased left ventricular wall thickness. The left ventricular diastolic function is normal. Right Ventricle Right ventricular systolic function is normal and with normal TAPSE 1.9 cm. Right ventricular chamber dimension is normal. Left Atria Left atrial chamber dimension is moderately enlarged. Right Atria Right atrial chamber dimension is moderately enlarged. Aortic Valve The aortic valve is trileaflet. There is mild aortic valve sclerosis. There is no aortic valve stenosis. There is no aortic valve regurgitation. Pulmonic Valve There is no pulmonic regurgitation. Mitral Valve There is no mitral valve stenosis. There is no mitral valve regurgitation. Tricuspid Valve There is no tricuspid valve regurgitation. No pulmonary hypertension, estimated pulmonary arterial systolic pressure is 39 mmHg. Pericardium/Pleural There is no pericardial effusion. Inferior Vena Cava Normal inferior vena cava with >50% collapse upon inspiration consistent with normal right atrial pressure, 5 mmHg. Aorta The aortic root size at the sinus of Valsalva is normal. Left Ventricular Outflow Tract Name Value Normal LVOT 2D LVOT Diameter 1.9 cm LVOT Doppler LVOT Peak Velocity 107 cm/s LVOT Peak Gradient 4 mmHg LVOT Mean Gradient 3 mmHg LVOT VTI 25 cm LVOT VTI/AV VTI Ratio 0.9 LVOT Stroke Volume 72 ml LVOT CO 5.3 l/min LVOT CI 2.2 l/min/m2 Pulmonic Valve
== END 2023-02-05 09:23 | disposition home or self-care (01) ==
LOC: ANHCARD 09:23
PROVIDERS: PCP Internal Medicine; Visit Provider Internal Medicine
DX: R06.02 Shortness of breath (principal); I48.91 Unspecified atrial fibrillation; R94.31 Abnormal electrocardiogram [ECG] [EKG]
CPT/HCPCS: 93306

== ENCOUNTER 2023-03-13 13:34 | Outpatient (CLI) | payer MEDICARE, OTHER, SELFPAY ==
[2023-03-13 15:30] LABS: Alanine Aminotransferase 47 U/L (6-35); Albumin Level 4.5 g/dL (3.5-5.1); Alkaline Phosphatase 43 U/L (38-126); Anion Gap 10 mmol/L (8-16); Aspartate Amino Transferase 33 U/L (14-36); Bilirubin,Total 0.5 mg/dL (0.2-1.3); Blood Urea Nitrogen 16 mg/dL (7-17); Calcium 9.5 mg/dL (8.4-10.2); Carbon Dioxide 26 mmol/L (22-30); Chloride 101 mmol/L (98-107); Cholesterol 191 mg/dL (0-200); Estimated Glomerular Filt Rate > 60; Glucose 119 mg/dL (65-110); HDL Direct 53 mg/dL; Potassium 3.9 mmol/L (3.4-5.0); Sodium 137 mmol/L (137-145); Triglycerides 215 mg/dL (<150)
[2023-03-13 15:42] LABS: LDL Cholesterol Direct 92 mg/dL
[2023-03-13 15:54] LABS: Hemoglobin A1C 5.4 % (<5.7)
[2023-03-15 09:16] LABS: Basophils Absolute Auto 0.1 K/mm3 (0.0-0.1); Basophils Percent Auto 0.9 % (0.2-1.2); Eosinophils Absolute Auto 0.1 K/mm3 (0-0.3); Eosinophils Percent Auto 2.2 % (0-4.4); Hematocrit 42.9 % (37.0-47.0); Immature Granulocyte Absolute 0.03 K/mm3 (0.00-0.031); Immature Granulocyte Percent A 0.6 % (0-0.5); Lymphocytes Absolute Auto 1.36 K/mm3 (0.9-3.2); Mean Corpuscular HGB Conc 32.6 g/dl (32-36); Mean Corpuscular Hemoglobin 29.2 pg (26-34); Mean Corpuscular Volume 89.6 fl (80-100); Mean Platelet Volume 11.4 fl (7.4-10.4); Monocytes Absolute Auto 0.5 K/mm3 (0.1-0.6); Monocytes Percent Auto 9.2 % (2.6-8.5); Neutrophils Absolute Auto 3.4 K/mm3 (1.3-6.7); Neutrophils Percent Auto 62.1 % (45.5-73.1); Platelet Count Result 204 k/mm3 (150-375); Red Blood Count 4.79 M/mm3 (4.2-5.4); Red Cell Distribution Width 13.2 % (11.5-14.5); White Blood Count 5.4 K/mm3 (4.5-10.0)
[2023-03-15 09:36] LABS: Iron 95 ug/dL (37-170)
[2023-03-15 09:46] LABS: Percent Iron Saturation 29 % (20-50)
== END 2023-03-13 13:35 | disposition home or self-care (01) ==
LOC: ANHLAB 13:37
PROVIDERS: PCP Internal Medicine; Visit Provider Internal Medicine
DX: E55.9 Vitamin D deficiency, unspecified (principal); E11.9 Type 2 diabetes mellitus without complications; I10 Essential (primary) hypertension; E78.5 Hyperlipidemia, unspecified; E78.2 Mixed hyperlipidemia; K62.5 Hemorrhage of anus and rectum
CPT/HCPCS: 36415; 80053; 80061; 82306; 82728; 83036; 83540; 83550; 85025

== ENCOUNTER 2023-04-25 08:45 | Outpatient (CLI) | payer MEDICARE, OTHER, SELFPAY ==
[2023-04-25 09:04] LABS: Basophils Absolute Auto 0.1 K/mm3 (0.0-0.1); Eosinophils Absolute Auto 0.2 K/mm3 (0-0.3); Eosinophils Percent Auto 2.9 % (0-4.4); Hematocrit 44.8 % (37.0-47.0); Hemoglobin 15.2 g/dL (12.0-15.0); Immature Granulocyte Absolute 0.03 K/mm3 (0.00-0.031); Immature Granulocyte Percent A 0.4 % (0-0.5); Lymphocytes Absolute Auto 2.47 K/mm3 (0.9-3.2); Lymphocytes Percent Auto 35.8 % (18.3-44.2); Mean Corpuscular HGB Conc 33.9 g/dl (32-36); Mean Corpuscular Hemoglobin 29.7 pg (26-34); Mean Corpuscular Volume 87.5 fl (80-100); Monocytes Absolute Auto 0.6 K/mm3 (0.1-0.6); Monocytes Percent Auto 9.1 % (2.6-8.5); Neutrophils Absolute Auto 3.5 K/mm3 (1.3-6.7); Neutrophils Percent Auto 50.8 % (45.5-73.1); Platelet Count Result 242 k/mm3 (150-375); Red Blood Count 5.12 M/mm3 (4.2-5.4); Red Cell Distribution Width 12.7 % (11.5-14.5); White Blood Count 6.9 K/mm3 (4.5-10.0)
[2023-04-25 10:15] LABS: Alanine Aminotransferase 53 U/L (6-35); Albumin Level 4.8 g/dL (3.5-5.1); Alkaline Phosphatase 47 U/L (38-126); Anion Gap 10 mmol/L (8-16); Aspartate Amino Transferase 47 U/L (14-36); Bilirubin,Total 0.6 mg/dL (0.2-1.3); Blood Urea Nitrogen 16 mg/dL (7-17); Calcium 10.1 mg/dL (8.4-10.2); Carbon Dioxide 28 mmol/L (22-30); Chloride 99 mmol/L (98-107); Estimated Glomerular Filt Rate > 60; Glucose 106 mg/dL (65-110); Sodium 137 mmol/L (137-145)
[2023-04-30 11:15] LABS: BCR/abl Prior Result See Report
[2023-04-30 12:05] LABS: BCR/abl P210 Not Detected
[2023-04-30 12:06] LABS: BCR/abl P210 Chg YES
== END 2023-04-25 08:46 | disposition home or self-care (01) ==
LOC: ANHLAB 08:49
PROVIDERS: PCP Internal Medicine; Visit Provider Internal Medicine Hematology & Oncology
DX: C92.10 Chronic myeloid leukemia, BCR/ABL-positive, not having achieved remission (principal)
CPT/HCPCS: 36415; 80053; 81207; 85025

== ENCOUNTER 2023-06-12 01:37 | Day surgery (SDC) | payer MEDICARE, OTHER, SELFPAY ==
[2023-05-27 11:02] VITALS: BMI 38.0
--- NOTE | 2023-06-11 16:38 | PM.HPGS ---
History of Present Illness History of Present Illness Consent: Risks, benefits, and alternatives have been discussed and questions answered. Patient agrees to proceed with procedure. Chief complaint: hx colon polyps,neoplasm screening,hemorrhoids Narrative: Alba Gordon is a 77 year old female referred for screening colonoscopy. She has a history of polyps. Review of Systems Review of Systems: All systems reviewed & are unremarkable except as noted in HPI and below PMFSH Past Medical History Medical History A-fib Autoimmune hepatitis Back pain Benign essential hypertension BMI 37.0-37.9, adult BMI 38.0-38.9,adult BMI 39.0-39.9,adult BMI 40.0-44.9, adult BRBPR (bright red blood per rectum) CML (chronic myelocytic leukemia) DM type 2 (diabetes mellitus, type 2) Dysuria Elevated homocysteine Encounter for Medicare annual wellness exam Encounter for routine adult health examination with abnormal findings Encounter for routine adult health examination without abnormal findings Follow up Hyperlipidemia Impacted cerumen of both ears Left hip pain Need for pneumococcal vaccine Nummular eczema On terminal block assembler drug therapy Palpable mass Possible exposure to STD Postmenopausal Statin intolerance Family History Family History Father Hypertension Mother Hypertension Social History Social History Smoking status: Never smoker Second hand tobacco smoke exposure: No Alcohol intake: never Substance use type: does not use Lack of Transportation: No Lack of Food: Never True Current Housing: I Have Housing Concerned About Future Housing: Decline to Answer Difficulty Paying Gas/Electric Bills: Decline to Answer Difficulty Paying for Meds: Decline to Answer Currently Unemployed: Decline to Answer Difficulty w/ Childcare or Family Care: No Living arrangements: other Additional living arrangements comments: with sp Gender identity (if verbalized by the patient): Female Meds Home Medications and Allergies Home Medications Medication Instructions Recorded Confirmed Type calcium carb and lactate 200 2 tablet PO BID 10/07/19 05/27/23 History mg-vitamin D3 6.25 mcg (250 unit) tablet loratadine 10 mg tablet (Claritin) 10 mg PO DAILY PRN allergies 10/07/19 05/27/23 History jksurhcrrawr-avqkbykw-zzloefj-folic 1 tablet PO DAILY 10/07/19 05/27/23 History acid 400 mcg-vit K1 20 mcg tablet (One-A-Day Women's 50 Plus) niacin 500 mg tablet 500 mg PO BID 10/07/19 05/27/23 History mecobalamin (vitamin B12) 1,000 1,000 mcg sublingual DAILY 10/08/19 05/27/23 History mcg disintegrating tablet,sublingual bosutinib 100 mg tablet (Bosulif) 300 mg PO DAILY 04/16/22 05/27/23 History Folate 1 tab-cap BYMOUTH DAILY 08/23/22 05/27/23 History sitagliptin phos 100 mg-metformin 1 tablet PO DAILY 08/23/22 05/27/23 History ER 1,000 mg tablet,extend rel 24h mp (Janumet XR) rivaroxaban 20 mg tablet (Xarelto) 20 mg PO DAILY #30 tabs 12/31/22 05/27/23 Rx pravastatin 40 mg tablet 40 mg PO DAILY 03/14/23 05/27/23 History triamcinolone acetonide 0.5 % See Rx Instructions .Route 05/27/23 05/27/23 History topical cream .COMPLEX PRN Rash lisinopril 20 See Rx Instructions .Route 06/06/23 06/12/23 Rx mg-hydrochlorothiazide 12.5 mg .COMPLEX #90 tabs tablet Allergies Allergy/AdvReac Type Severity Reaction Status Date / Time strawberry Allergy Intermediate HIVES Verified 06/12/23 11:47 iodine Allergy Mild RASH Verified 06/12/23 11:47 aspirin Allergy Unknown Gastrointestinal Verified 06/12/23 11:47 Upset Tcieuhz-KIX-RmC Reductase Allergy Unknown Muscle Pain Verified 06/12/23 11:47 Inhibitor [Fplpwjv-Enl-Idp Reductase Inhibitor] SHELLFISH Allergy Mild Vomiting Uncoded 06/12/23 11:47 Exam Const: General:
[2023-06-12 11:49] VITALS: BP 183/96; PULSE 84; RESP 20; TEMP 36.4; O2SAT 100; BMI 38.7
[2023-06-12] MEDS: LACTATED RINGERS 1,000 ML 150 ML IV CONT (11:58)
[2023-06-12 12:02] LABS: Glucose Point of Care 125 mg/dl (65-105)
[2023-06-12 13:05] VITALS: BP 148/70; PULSE 51; RESP 18; O2SAT 96
[2023-06-12 13:15] VITALS: BP 161/88; PULSE 52; RESP 18; O2SAT 97
[2023-06-12 13:25] VITALS: BP 160/86; PULSE 57; RESP 16; O2SAT 98
== END 2023-06-12 13:47 | disposition home or self-care (01) ==
PROVIDERS: PCP Internal Medicine; Visit Provider Internal Medicine Gastroenterology
PROC: 0DJD8ZZ Inspection of Lower Intestinal Tract, Via Natural or Artificial Opening Endoscopic (ICD-10-PCS; CPT 45378; principal; 2023-06-12 13:00)
DX: Z12.11 Encounter for screening for malignant neoplasm of colon (principal); K64.8 Other hemorrhoids; K57.30 Diverticulosis of large intestine without perforation or abscess without bleeding; Z86.010 Personal history of colon polyps; I48.91 Unspecified atrial fibrillation; I10 Essential (primary) hypertension; E11.9 Type 2 diabetes mellitus without complications; C92.10 Chronic myeloid leukemia, BCR/ABL-positive, not having achieved remission; E78.5 Hyperlipidemia, unspecified; Z79.84 Long term (current) use of oral hypoglycemic drugs; Z79.01 Long term (current) use of anticoagulants
CPT/HCPCS: G0105; 82948; J2704; J7120

== ENCOUNTER 2023-09-24 12:03 | Outpatient (CLI) | payer MEDICARE, OTHER, SELFPAY ==
[2023-09-24 13:32] LABS: Basophils Absolute Auto 0.1 K/mm3 (0.0-0.1); Basophils Percent Auto 1.1 % (0.2-1.2); Eosinophils Absolute Auto 0.1 K/mm3 (0-0.3); Eosinophils Percent Auto 2.3 % (0-4.4); Hematocrit 45.4 % (37.0-47.0); Hemoglobin 14.7 g/dL (12.0-15.0); Immature Granulocyte Absolute 0.03 K/mm3 (0.00-0.031); Immature Granulocyte Percent A 0.6 % (0-0.5); Lymphocytes Absolute Auto 1.78 K/mm3 (0.9-3.2); Lymphocytes Percent Auto 33.6 % (18.3-44.2); Mean Corpuscular HGB Conc 32.4 g/dl (32-36); Mean Corpuscular Hemoglobin 28.6 pg (26-34); Mean Corpuscular Volume 88.3 fl (80-100); Mean Platelet Volume 11.2 fl (7.4-10.4); Monocytes Absolute Auto 0.5 K/mm3 (0.1-0.6); Monocytes Percent Auto 9.1 % (2.6-8.5); Neutrophils Absolute Auto 2.8 K/mm3 (1.3-6.7); Neutrophils Percent Auto 53.3 % (45.5-73.1); Platelet Count Result 220 k/mm3 (150-375); Red Blood Count 5.14 M/mm3 (4.2-5.4); Red Cell Distribution Width 13.5 % (11.5-14.5); White Blood Count 5.3 K/mm3 (4.5-10.0)
[2023-09-24 13:42] LABS: Alanine Aminotransferase 58 U/L (6-35); Albumin Level 4.6 g/dL (3.5-5.1); Alkaline Phosphatase 49 U/L (38-126); Anion Gap 7 mmol/L (8-16); Aspartate Amino Transferase 40 U/L (14-36); Bilirubin,Total 0.7 mg/dL (0.2-1.3); Blood Urea Nitrogen 12 mg/dL (7-17); Calcium 9.7 mg/dL (8.4-10.2); Carbon Dioxide 30 mmol/L (22-30); Chloride 101 mmol/L (98-107); Cholesterol 201 mg/dL (0-200); Estimated Glomerular Filt Rate > 60; Glucose 104 mg/dL (65-110); HDL Direct 47 mg/dL; Potassium 3.8 mmol/L (3.4-5.0); Sodium 138 mmol/L (137-145); Triglycerides 163 mg/dL (<150)
[2023-09-24 13:53] LABS: LDL Cholesterol Direct 108 mg/dL
[2023-09-24 13:54] LABS: Hemoglobin A1C 5.5 % (<5.7)
== END 2023-09-24 12:04 | disposition home or self-care (01) ==
PROVIDERS: PCP Internal Medicine; Visit Provider Internal Medicine
DX: E78.2 Mixed hyperlipidemia (principal); I10 Essential (primary) hypertension; E11.9 Type 2 diabetes mellitus without complications
CPT/HCPCS: 36415; 80053; 80061; 83036; 85025

== ENCOUNTER 2023-10-01 15:12 | Outpatient (CLI) | payer MEDICARE, OTHER, SELFPAY ==
[2023-10-01 16:23] LABS: Appearance Urine Turbid (Clear); Bacteria Urine 4+ /hpf; Bilirubin Urine Negative (Negative); Blood Urine 2+ (Negative); Color Urine Yellow (Yellow); Glucose Urine UA Negative (Negative); Ketones Urine Trace mg/dL (Negative); Leukocyte Esterase Ur 3+ LEU/UL (Negative); Nitrate Urine Positive (Negative); Protein Urine 1+ mg/dL (Negative); RBC Urine 0-2 /hpf (0-2); Specific Grav Ur 1.014 (1.001-1.035); Squamous Epithelial Cell Urine Few /hpf (Few); WBC Clumps Urine Present /HPF; WBC Urine >100 /hpf; pH Urine 5.5 (5.0-9.0)
[2023-10-01 16:24] LABS: Add Urine Microscopic? YES
== END 2023-10-01 15:13 | disposition home or self-care (01) ==
LOC: ANHLAB 15:15
PROVIDERS: PCP Internal Medicine; Visit Provider Internal Medicine
DX: N39.0 Urinary tract infection, site not specified (principal); R30.0 Dysuria
CPT/HCPCS: 81001; 87077; 87086; 87186

== ENCOUNTER 2023-10-29 10:43 | Outpatient (CLI) | payer MEDICARE, OTHER, SELFPAY ==
[2023-10-29 11:05] LABS: Basophils Absolute Auto 0.1 K/mm3 (0.0-0.1); Eosinophils Absolute Auto 0.1 K/mm3 (0-0.3); Eosinophils Percent Auto 2.1 % (0-4.4); Hematocrit 41.8 % (37.0-47.0); Hemoglobin 13.7 g/dL (12.0-15.0); Immature Granulocyte Absolute 0.04 K/mm3 (0.00-0.031); Immature Granulocyte Percent A 0.6 % (0-0.5); Lymphocytes Percent Auto 40.5 % (18.3-44.2); Mean Corpuscular HGB Conc 32.8 g/dl (32-36); Mean Corpuscular Hemoglobin 28.7 pg (26-34); Mean Corpuscular Volume 87.4 fl (80-100); Mean Platelet Volume 9.8 fl (7.4-10.4); Monocytes Absolute Auto 0.6 K/mm3 (0.1-0.6); Monocytes Percent Auto 9.6 % (2.6-8.5); Neutrophils Absolute Auto 2.9 K/mm3 (1.3-6.7); Neutrophils Percent Auto 46.2 % (45.5-73.1); Platelet Count Result 250 k/mm3 (150-375); Red Blood Count 4.78 M/mm3 (4.2-5.4); Red Cell Distribution Width 13.9 % (11.5-14.5); White Blood Count 6.2 K/mm3 (4.5-10.0)
[2023-10-29 12:18] LABS: Alanine Aminotransferase 52 U/L (6-35); Albumin Level 4.4 g/dL (3.5-5.1); Alkaline Phosphatase 61 U/L (38-126); Anion Gap 4 mmol/L (8-16); Aspartate Amino Transferase 41 U/L (14-36); Bilirubin,Total 0.7 mg/dL (0.2-1.3); Blood Urea Nitrogen 21 mg/dL (7-17); Calcium 9.9 mg/dL (8.4-10.2); Carbon Dioxide 30 mmol/L (22-30); Chloride 103 mmol/L (98-107); Estimated Glomerular Filt Rate 54; Glucose 94 mg/dL (65-110); Sodium 137 mmol/L (137-145)
[2023-11-04 18:09] LABS: BCR/abl Prior Result See Report
[2023-11-04 18:10] LABS: BCR/abl P210 Not Detected
[2023-11-04 18:11] LABS: BCR/abl P210 Chg YES
== END 2023-10-29 10:44 | disposition home or self-care (01) ==
LOC: ANHLAB 10:46
PROVIDERS: PCP Internal Medicine; Visit Provider Internal Medicine Hematology & Oncology
DX: C92.10 Chronic myeloid leukemia, BCR/ABL-positive, not having achieved remission (principal)
CPT/HCPCS: 36415; 80053; 81207; 85025

== ENCOUNTER 2024-02-04 08:48 | Outpatient (CLI) | payer MEDICARE, OTHER, SELFPAY ==
[2024-02-04 09:25] LABS: Appearance Urine Clear (Clear); Bacteria Urine None Seen /hpf; Bilirubin Urine Negative (Negative); Blood Urine Negative (Negative); Color Urine Yellow (Yellow); Glucose Urine UA Negative (Negative); Ketones Urine Negative (Negative); Leukocyte Esterase Ur 2+ LEU/UL (Negative); Nitrate Urine Negative (Negative); Non Pathogenic Casts 0-2; Protein Urine Negative (Negative); RBC Urine 0-2 /hpf (0-2); Squamous Epithelial Cell Urine None Seen /hpf (Few); Urobilinogen Urine 0.2 mg/dL (<2.0)
[2024-02-04 09:27] LABS: Add Urine Microscopic? NO
[2024-02-04 09:41] LABS: Alanine Aminotransferase 25 U/L (6-35); Albumin Level 4.8 g/dL (3.5-5.1); Alkaline Phosphatase 54 U/L (38-126); Anion Gap 6 mmol/L (4-12); Aspartate Amino Transferase 26 U/L (14-36); Bilirubin,Total 0.6 mg/dL (0.2-1.3); Blood Urea Nitrogen 16 mg/dL (7-17); Calcium 10.2 mg/dL (8.4-10.2); Carbon Dioxide 32 mmol/L (22-30); Chloride 100 mmol/L (98-107); Cholesterol 164 mg/dL (0-200); Estimated Glomerular Filt Rate > 60; Glucose 98 mg/dL (65-110); HDL Direct 67 mg/dL; Sodium 138 mmol/L (137-145); Triglycerides 145 mg/dL (<150)
[2024-02-04 09:44] LABS: LDL Cholesterol Direct 77 mg/dL
[2024-02-04 09:50] LABS: Free T4 Free Thyroxine 1.14 ng/mL (0.78-2.19); Vitamin D 25 Hydroxy 48.6 ng/mL
== END 2024-02-04 08:49 | disposition home or self-care (01) ==
LOC: ANHLAB 08:50
PROVIDERS: PCP Internal Medicine; Visit Provider Internal Medicine
DX: I10 Essential (primary) hypertension (principal); Z79.899 Other long term (current) drug therapy; Z13.29 Encounter for screening for other suspected endocrine disorder; E55.9 Vitamin D deficiency, unspecified; E78.2 Mixed hyperlipidemia
CPT/HCPCS: 36415; 80053; 80061; 81003; 82306; 84439; 84443; 87086

== ENCOUNTER 2024-05-05 09:16 | Outpatient (CLI) | payer MEDICARE, OTHER, SELFPAY ==
[2024-05-05 09:41] LABS: Basophils Percent Auto 0.6 % (0.2-1.2); Eosinophils Absolute Auto 0.2 K/mm3 (0-0.3); Eosinophils Percent Auto 2.3 % (0-4.4); Hematocrit 41.5 % (37.0-47.0); Hemoglobin 13.7 g/dL (12.0-15.0); Immature Granulocyte Absolute 0.04 K/mm3 (0.00-0.031); Immature Granulocyte Percent A 0.6 % (0-0.5); Lymphocytes Absolute Auto 2.17 K/mm3 (0.9-3.2); Lymphocytes Percent Auto 31.4 % (18.3-44.2); Mean Corpuscular Hemoglobin 28.9 pg (26-34); Mean Corpuscular Volume 87.6 fl (80-100); Mean Platelet Volume 10.2 fl (7.4-10.4); Monocytes Absolute Auto 0.7 K/mm3 (0.1-0.6); Monocytes Percent Auto 10.6 % (2.6-8.5); Neutrophils Absolute Auto 3.8 K/mm3 (1.3-6.7); Neutrophils Percent Auto 54.5 % (45.5-73.1); Platelet Count Result 245 k/mm3 (150-375); Red Blood Count 4.74 M/mm3 (4.2-5.4); Red Cell Distribution Width 13.2 % (11.5-14.5); White Blood Count 6.9 K/mm3 (4.5-10.0)
[2024-05-05 10:42] LABS: Alanine Aminotransferase 28 U/L (6-35); Albumin Level 4.5 g/dL (3.5-5.1); Alkaline Phosphatase 54 U/L (38-126); Anion Gap 9 mmol/L (4-12); Aspartate Amino Transferase 29 U/L (14-36); Bilirubin,Total 0.5 mg/dL (0.2-1.3); Blood Urea Nitrogen 15 mg/dL (7-17); Calcium 9.8 mg/dL (8.4-10.2); Carbon Dioxide 29 mmol/L (22-30); Chloride 98 mmol/L (98-107); Estimated Glomerular Filt Rate 54; Glucose 98 mg/dL (65-110); Potassium 4.3 mmol/L (3.4-5.0); Sodium 136 mmol/L (137-145)
[2024-05-12 08:49] LABS: BCR/abl P190 NOT DETECTED; BCR/abl P210 NOT DETECTED; BCR/abl Source PERIPHERAL
== END 2024-05-05 09:17 | disposition home or self-care (01) ==
LOC: ANHLAB 09:18
PROVIDERS: PCP Internal Medicine; Visit Provider Internal Medicine Hematology & Oncology
DX: C92.10 Chronic myeloid leukemia, BCR/ABL-positive, not having achieved remission (principal)
CPT/HCPCS: 36415; 80053; 85025

== ENCOUNTER 2024-06-17 08:24 | Outpatient (CLI) | payer MEDICARE, OTHER, SELFPAY ==
[2024-06-17 09:05] LABS: Alanine Aminotransferase 30 U/L (6-35); Albumin Level 4.7 g/dL (3.5-5.1); Alkaline Phosphatase 45 U/L (38-126); Anion Gap 10 mmol/L (4-12); Aspartate Amino Transferase 34 U/L (14-36); Bilirubin,Total 0.6 mg/dL (0.2-1.3); Blood Urea Nitrogen 19 mg/dL (7-17); Calcium 9.9 mg/dL (8.4-10.2); Carbon Dioxide 27 mmol/L (22-30); Chloride 100 mmol/L (98-107); Cholesterol 178 mg/dL (0-200); Estimated Glomerular Filt Rate > 60; Glucose 95 mg/dL (65-110); HDL Direct 61 mg/dL; Sodium 137 mmol/L (137-145); Triglycerides 205 mg/dL (<150)
[2024-06-17 09:06] LABS: Basophils Absolute Auto 0.1 K/mm3 (0.0-0.1); Basophils Percent Auto 0.7 % (0.2-1.2); Eosinophils Absolute Auto 0.2 K/mm3 (0-0.3); Hemoglobin 14.2 g/dL (12.0-15.0); Immature Granulocyte Absolute 0.05 K/mm3 (0.00-0.031); Immature Granulocyte Percent A 0.7 % (0-0.5); Lymphocytes Absolute Auto 2.04 K/mm3 (0.9-3.2); Lymphocytes Percent Auto 30.1 % (18.3-44.2); Mean Corpuscular Volume 87.8 fl (80-100); Mean Platelet Volume 10.8 fl (7.4-10.4); Monocytes Absolute Auto 0.7 K/mm3 (0.1-0.6); Monocytes Percent Auto 9.7 % (2.6-8.5); Neutrophils Absolute Auto 3.8 K/mm3 (1.3-6.7); Neutrophils Percent Auto 55.8 % (45.5-73.1); Platelet Count Result 221 k/mm3 (150-375); Red Cell Distribution Width 13.4 % (11.5-14.5); White Blood Count 6.8 K/mm3 (4.5-10.0)
[2024-06-17 09:16] LABS: LDL Cholesterol Direct 77 mg/dL
[2024-06-17 09:35] LABS: Hemoglobin A1C 5.4 % (<5.7)
[2024-06-17 09:43] LABS: Free T4 Free Thyroxine 1.16 ng/mL (0.78-2.19); Vitamin D 25 Hydroxy 53.2 ng/mL
== END 2024-06-17 08:25 | disposition home or self-care (01) ==
PROVIDERS: PCP Internal Medicine; Visit Provider Internal Medicine
DX: E11.9 Type 2 diabetes mellitus without complications (principal); E55.9 Vitamin D deficiency, unspecified; E78.5 Hyperlipidemia, unspecified; I10 Essential (primary) hypertension; R79.89 Other specified abnormal findings of blood chemistry; Z79.899 Other long term (current) drug therapy
CPT/HCPCS: 36415; 80053; 80061; 82306; 83036; 84439; 84443; 85025

== ENCOUNTER 2024-07-31 10:48 | Outpatient (CLI) | payer MEDICARE, OTHER, SELFPAY ==
--- NOTE | ~2024-07-31 | XR_ITS ---
XR knee LT 3V 07/31/2024 11:16 Indication: Left knee pain Procedure: 3 views left knee Comparison: No prior studies for comparison. Findings: There is tricompartment osteoarthritis. No fracture or traumatic malalignment. No joint eff usion. No foreign bodies. Impression: 1: Mild tricompartment osteoarthritis. Reviewed, dictated and finalized at location B. SLAGMAN Impression: 1: Mild tricompartment osteoarthritis.
--- NOTE | ~2024-07-31 | XR_ITS ---
XR knee RT 3V 07/31/2024 11:16 Indication: Right knee pain after fall Procedure: 3 views right knee Comparison: No prior studies for comparison. Findings: There is mild tricompartment osteoarthritis. No fracture, subluxation or dislocation. No meliton int effusion. Impression: 1: Mild tricompartment osteoarthritis. Reviewed, dictated and finalized at location B. OGIC TECHNICIAN Impression: 1: Mild tricompartment osteoarthritis.
== END 2024-07-31 10:49 | disposition home or self-care (01) ==
PROVIDERS: PCP Internal Medicine; Visit Provider Internal Medicine
DX: M17.0 Bilateral primary osteoarthritis of knee (principal)
CPT/HCPCS: 73562

== ENCOUNTER 2024-09-18 08:01 | Outpatient (CLI) | payer MEDICARE, OTHER, SELFPAY ==
--- NOTE | ~2024-09-18 | XR_ITS ---
EXAMINATION: XR chest 2V 09/18/2024 08:30 INDICATION: Cough PROCEDURE: 2 view chest COMPARISON: 05/19/2006 FINDINGS: The lungs are clear. The cardiomediastinal silhouette is within normal limits. There are no pleural effusions. There is no pneumothorax suspected. IMPRESSION: 1: NO ACUTE CARDIOPULMONARY DISEASE. Reviewed, dictated and finalized at location A. UCTION EDITOR
[2024-09-18 08:54] LABS: Influenza A QL RT-PCR Negative (Negative); Influenza B QL RT-PCR Negative (Negative); RSV RNA, RT-PCR Positive (Negative); SARS-CoV-2 RNA PCR Negative (Negative)
== END 2024-09-18 08:02 | disposition home or self-care (01) ==
PROVIDERS: PCP Internal Medicine; Visit Provider Internal Medicine
DX: R05.9 Cough, unspecified (principal); Z20.822 Contact with and (suspected) exposure to COVID-19
CPT/HCPCS: 71046; 87637

== ENCOUNTER 2024-10-27 09:48 | Outpatient (CLI) | payer MEDICARE, OTHER, SELFPAY ==
[2024-10-27 10:23] LABS: Basophils Percent Auto 0.6 % (0.2-1.2); Eosinophils Absolute Auto 0.1 K/mm3 (0-0.3); Hematocrit 40.8 % (37.0-47.0); Hemoglobin 13.5 g/dL (12.0-15.0); Immature Granulocyte Absolute 0.03 K/mm3 (0.00-0.031); Immature Granulocyte Percent A 0.4 % (0-0.5); Lymphocytes Absolute Auto 2.01 K/mm3 (0.9-3.2); Lymphocytes Percent Auto 29.2 % (18.3-44.2); Mean Corpuscular HGB Conc 33.1 g/dl (32-36); Mean Corpuscular Hemoglobin 29.1 pg (26-34); Mean Corpuscular Volume 87.9 fl (80-100); Mean Platelet Volume 10.3 fl (7.4-10.4); Monocytes Absolute Auto 0.6 K/mm3 (0.1-0.6); Monocytes Percent Auto 8.4 % (2.6-8.5); Neutrophils Absolute Auto 4.1 K/mm3 (1.3-6.7); Neutrophils Percent Auto 59.4 % (45.5-73.1); Platelet Count Result 243 k/mm3 (150-375); Red Blood Count 4.64 M/mm3 (4.2-5.4); Red Cell Distribution Width 14.1 % (11.5-14.5); White Blood Count 6.9 K/mm3 (4.5-10.0)
[2024-10-27 10:36] LABS: Add Urine Microscopic? YES; Appearance Urine Clear (Clear); Bacteria Urine None Seen /hpf; Bilirubin Urine Negative (Negative); Blood Urine Negative (Negative); Color Urine Yellow (Yellow); Glucose Urine UA Negative (Negative); Ketones Urine Negative (Negative); Leukocyte Esterase Ur 1+ LEU/UL (Negative); Need Manual Microscopic Reviewed; Nitrate Urine Negative (Negative); Non Pathogenic Casts 0-2; Protein Urine Negative (Negative); RBC Urine 0-2 /hpf (0-2); Specific Grav Ur 1.013 (1.001-1.035); Squamous Epithelial Cell Urine None Seen /hpf (Few); Urobilinogen Urine 0.2 mg/dL (<2.0); WBC Urine 0-5 /hpf (0-3)
[2024-10-27 10:38] LABS: Alanine Aminotransferase 27 U/L (6-35); Albumin Level 4.6 g/dL (3.5-5.1); Alkaline Phosphatase 47 U/L (38-126); Anion Gap 13 mmol/L (4-12); Aspartate Amino Transferase 24 U/L (14-36); Bilirubin,Total 0.5 mg/dL (0.2-1.3); Blood Urea Nitrogen 21 mg/dL (7-17); Carbon Dioxide 27 mmol/L (22-30); Chloride 100 mmol/L (98-107); Cholesterol 170 mg/dL (0-200); Estimated Glomerular Filt Rate 53; Glucose 95 mg/dL (65-110); HDL Direct 59 mg/dL; Potassium 4.1 mmol/L (3.4-5.0); Sodium 140 mmol/L (137-145); Triglycerides 161 mg/dL (<150)
[2024-10-27 10:45] LABS: Creatinine Urine 69.3 mg/dL
[2024-10-27 10:48] LABS: LDL Cholesterol Direct 68 mg/dL
--- OUTSIDE RECORDS SUMMARY | 2024-10-27 10:56 | XMS_ITS | Clinical Summary ---
Author Organization [facility] [place] Address [address] [place] [address] Care Team Providers Care Design Sales Consultant Name Role Phone Demetrio Torres MD Primary Care Provider + Allergies Active Allergy Reactions Criticality Noted Date Comments Iodine Nausea and Vomiting Low 05/16/2018 Shellfish Containing Products Nausea and Vomiting Low 05/16/2018 Medications diphenhydrAMINE (BENADRYL) 25 mg tablet Take 25 mg by mouth every 6 hours as needed for Allergies or Itching. Active meclizine (ANTIVERT) 25 mg tablet Take 25 mg by mouth 3 times daily as needed for Dizziness. Active loratadine (CLARITIN) 10 mg tablet Take 10 mg by mouth 1 time daily as needed for Allergies. Active multivitamin (DAILY-ZAHIDA) tablet Take 1 Tablet by mouth daily. Active niacin (NIACOR) 500 mg tablet Take 500 mg by mouth 2 times daily. Active lisinopril-hydro CHLOROthiazide (ZESTORETIC) 20-12.5 mg tablet Take 1 Tablet by mouth daily. Active cyanocobalamin (VITAMIN B-12) 500 mcg tablet Take 1,000 mcg by mouth daily. Active folic acid (FOLVITE) 0.8 mg Tablet Take 800 mcg by mouth daily. Active triamcinolone acetonide (KENALOG) 0.5 % Cream Apply to affected area 2 times daily. As needed Active pravastatin (PRAVACHOL) 20 mg tablet Take 20 mg by mouth daily. 0 Active sitaGLIPtin-metF ORMIN (Janumet) 50-1,000 mg tablet Take by mouth. Activ e bosutinib (Bosulif) 100 mg tabletIndication s:Chronic myelogenous leukemia (CMS/HCC) Take 3 Tablets (300 mg) by mouth daily with breakfast. 90 Tablet 11 4 Active calcium carbonate + vitamin D (CALTRATE+D) 600 mg-10 mcg (400 unit) Tablet Take 1 Tablet by mouth daily. Active Active Problems Problem Noted Date Diagnosed Date Chronic myelogenous leukemia 05/16/2018 Encounters Date Type Department Care Team Description 10/06/2024 External Device Data STL ABSTRACTION Provider, Abstract 09/24/2024 Telephone [facility] Oncology and Hematology [facility] [address] [place] [id number] Nolan Callaway MD Assistance program follow up 09/08/2024 External Device Data STL ABSTRACTION Provider, Abstract from Last 3 Months Family History Medical History Relation Name Comments Other Brother 1 Other Brother 2 No Known Problems Father No Known Problems Mother Relation Name Status Comments Brother 1 Brother 2 Father Mother Social History Tobacco Use Types Packs/Day Years Used Date Smoking Tobacco: Never Passive Smoke Exposure: Yes Tobacco Cessation:Counseling Given: Not Answered Alcohol Use Standard Drinks/Week Comments Yes 0 (1 standard drink = 0.6 oz pur e alcohol) rarely Comments No Sex and Gender Information Value Date Recorded Sex Assigned at Not on file Legal Sex Female 2:47 PM CDT Gender Identity Not on file Sexual Orientation Not on file Last Filed Vital Signs Vital Sign Reading Time Taken Comments Blood Pressure 127/69 05/20/2024 10:00 AM CDT Pulse 67 05/20/2024 10:00 AM CDT Temperature 36.3 C (97.3 F) 05/20/2024 10:00 AM CDT Respiratory Rate 18 05/20/2024 10:00 AM CDT Oxygen Saturation 96% 05/20/2024 10:00 AM CDT Inhaled Oxygen Concentration - - Weight 112.9 kg (249 lb) 05/20/2024 10:00 AM CDT Height 176.5 cm (5' 9.5 ) 03/22/2022 1:12 PM CDT Body Mass Index 36.24 03/22/2022 1:12 PM CDT Plan of Treatment Upcoming Encounters Date Type Department Care Team (Late st Contact Info) Description 11/18/2024 1:00 PM CDT Office Visit [facility] Oncology and Hematology [facility] [address] [place] [phone] Nolan Callaway MD [address] [facility] [address] [place] [phone] Health Maintenance Due Date Last Done Comments DTAP/TDAP/TD VACCINES (1 - Tdap) 1964 PNEUMOCOCCAL VACCINE 50+ YEA RS (1 of 2 - PCV) 1965 Traditional Medicare (ACO) A nnual Wellness Visit 1965 ZOSTER VACCINE (1 of 2) 1965 RSV VACCINE (60+ or ) (1 - 1-dose 75+ series) 2021 INFLUENZA VACCINE (#1) 2024 OSTEOPOROSIS SCREENING Completed 02/02/2021 COLORECTAL SCREENING Discontinued 06/12/2023, 03/11/20 Colorectal Cancer Screening Discontinued FIT-DNA Q 3 years Discontinued FIT/FOBT Q 1 year Discontinued Flex Sig/CT Colonography Q 5 years Discontinued Insurance MEDICARE [place] [address] [facility] [id number] [address] Care Teams Design Sales Consultant Relationship Specialty Start Date End Date Demetrio Torres MD [address] [place] [phone] PCP - General Internal Medicine 05/16/18
--- OUTSIDE RECORDS SUMMARY | 2024-10-27 10:56 | XMS_ITS | Clinical Summary ---
Author Organization [facility] Address [address] [facility] [place] [address] Care Team Providers Care Applications Administrator Name Role Phone Demetrio Torres MD Primary Care Provider [phone] Source Comments [facility],non-owned Affiliates and Associated Physician Practices is amultiple site organization consisting of ambulatory clinics and hospital sitesin [place], [place], [place] and [place]. This disclosure is being madepursuant to the Care Everywhere program and may not contain all information available regarding this patient. Last updated 18.[facility] Social History Tobacco Use Types Packs/Day Years Used Date Smoking Tobacco: Never Assessed Sex and Gender Information Value Date Recorded Sex Assigned at Not on file Gender Identity Not on file Sexual Orientation Not on file Plan of Treatment Health Maintenance Due Date Last Done Comments BONE DENSITY TESTING 1945 MEDICARE AWV 12 MONTHS 1945 HEPATITIS C SCREENING 08/01/1964 DTAP/TDAP/TD VACCINES (1 - Tdap) 1965 PNEUMOCOCCAL VACCINE 50+ (1 of 1 - PCV) 1996 ZOSTER VACCINE (1 of 2) 1996 Respiratory Syncytial Virus (RSV) Vaccine Pt: or over 60 yrs (1 - 1-dose 75+ series) 2021 COVID-19 VACCINE ( - 2023-2 5 season) 2024 INFLUENZA VACCINE (#1) 2024 DEPRESSION SCREENING 08/19/2024 HEPATITIS B VACCINE Aged Out No longe r eligible based on patient's age to complete this topic HIB VACCINE Aged Out No longer eligi ble based on patient's age to complete this topic HPV VACCINE Aged Out No longer eligi ble based on patient's age to complete this topic MENINGOCOCCAL (Group B) VACCINE Aged Out No longer eligible based on patient's age to complete this topic MENINGOCOCCAL VACCINE Aged Out No anne sudhir eligible based on patient's age to complete this topic Care Teams Applications Administrator Relationship Specialty Start Date End Date Demetrio Torres MD [address] [place] [phone] PCP - General 05/16/18
--- OUTSIDE RECORDS SUMMARY | 2024-10-27 10:56 | XMS_ITS | Clinical Summary ---
Author Organization [facility] Address [facility] [place] [address] Care Team Providers Care Monument Setter Name Role Phone Unavailable Primary Care Provider Unavailabl e Social History Tobacco Use Types Packs/Day Years Used Date Smoking Tobacco: Never Assessed Comments Unknown Sex and Gender Information Value Date Recorded Sex Assigned at Not on file Legal Sex Female 7:40 PM CDT Gender Identity Not on file Sexual Orientation Not on file Plan of Treatment Health Maintenance Due Date Last Done Comments Hepatitis C 1964 DTaP, Tdap and Td Vaccines ( 1 - Tdap) 1965 Zoster Vaccines (1 of 2) 1996 Dexa Scan (General) 2011 Pneumococcal Vaccine: 65+ Ye ars (1 of 1 - PCV) 2011 RSV Immunization or 60+ Years (1 - 1-dose 75+ series) 2021 COVID-19 Vaccine (2023-2 5 season) 2024 Influenza Adult (#1) 2024 Meningococcal B Vaccine Aged Out No l onger eligible based on patient's age to complete this topic Meningococcal Vaccine Aged Out No anne sudhir eligible based on patient's age to complete this topic RSV Immunizations Under 20 Months Aged Out No longer eligible based on patient's age to complete this topic
--- OUTSIDE RECORDS SUMMARY | 2024-10-27 10:56 | XMS_ITS | Patient Health Summary ---
Author Organization [facility] Address [address] [place] [address] Care Team Providers Care Nuisance Animal Damage Control Agent Name Role Phone Demetrio Torres MD Primary Care Provider [phone] Note from [facility],non-owned Affiliates and Associated Physician Practices is amultiple site organization consisting of ambulatory clinics and hospital sitesin [place], [place], [place] and [place]. This disclosure is being madepursuant to the Care Everywhere program and may not contain all information available regarding this patient. Last updated 18.[facility] Social History Tobacco Use Types Packs/Day Years Used Date Smoking Tobacco: Never Assessed Sex and Gender Information Value Date Recorded Sex Assigned at Not on file Gender Identity Not on file Sexual Orientation Not on file Procedures * FLOW CYTOMETRY BONE MARROW(Performed 05/20/2018) Performed for Chronic myeloid leukemia, BCR/ABL-positive, not having achieved remission * BONE MARROW BIOPSY (STL)(Performed 05/20/2018) Results * FLOW CYTOMETRY BONE MARROW (05/20/2018 10:50 AM CDT) Case Report Flow Cytometry Case: [id number] Authorizing Provider: Marito Craft MD Collected: 05/20/2018 10:50 AM Pathologist: David Carson MD Received: 05/20/2018 03:42 PM Specimen: Bone Marrow 05/21/2018 12:07 PM T [facility] Final Diagnosis Bone marrow, flow cytometric immunophenotypic analysis: - No evidence of non-Hodgkin lymphoma or high-grade myeloid neoplasm. - See interpretation. 05/21/2018 12:07 PM T [facility] Flow Cytometry Interpretation The bone marrow specimen has a viability of 94%. The lymphocyte, dim CD45, monocyte, and granulocyte nuno are normal in relative proportion. Within the lymphocyte gate, there are very few polytypic B-cells identified (kappa to lambda ratio = 2:1). There is no aberrant co-expression of CD5 or CD10 on the mature B-lymphocytes. There is no aberrantly expanded T-lymphocyte population seen. By CD34, 1.6% of all events analyzed are blasts. A bone marrow aspirate smear prepared from the flow cytometry specimen is reviewed for chief vendor quality purposes. Overall, the bone marrow aspirate specimen shows no evidence of involvement by non-Hodgkin lymphoma or a high-grade myeloid neoplasm. Correlation with clinical findings and relevant cytogenetic/molecu lar studies is required. DIRECTOR OF CORPORATE SPONSORSHIPS/NW 05/21/2018 12:07 PM [facility] Flow Cytometry Results Differential Result Comment Flow Cell Count /uL [id number] Total Viability % 94.0 Lymphocytes % 3 Dim CD45 Region % 3 Monocytes % 9 Granulocytes % 84 05/21/2018 12:07 PM [facility] Reason for test Chronic myeloid leukemia, BCR/ABL-positive, not having achieved remission 205.10 05/21/2018 12:07 PM [facility] Client Specimen ID # [id number] 05/21/2018 12:07 PM [facility] Number of markers 19 were performed. A Flow CD10 A Flow CD13 A Flow CD20 A Flow CD2 A Flow CD14 A Flow CD117 A Flow CD11b A Flow CD11c A Flow CD5 A Flow CD19 A Flow CD33 A Flow CD34 A Flow CD45 A Flow CD7 A Flow CD56 A Flow CD64 A [place]+CD19+ A Lambda+CD19+ A Flow HLA-DR 05/21/2018 12:07 PM [facility] Disclaimer Test performed at [facility], [address] [place] [address], [address]. *The established laboratory minimum viability is 70%. Values below the minimum may result in the failure to find an abnormal population of cells. This test was developed and its performance characteristics determined by the Flow Cytometry Laboratory. It has not been cleared by the [place] Food and Drug Administration (FDA). The FDA has determined that such clearance or approval is not necessary. This test is used for clinical purposes. It should not be regarded as investigational or for research. This laboratory is regulated under the Clinical Laboratory Improvement Amendments of 1998 (CLIA) as a qualified to perform high complexity clinical testing. 05/21/2018 12:07 PM CDT [facility] Embedded Images 8 12:07 PM CDT [facility] Pathology/Cytolo gy BONE MARROW SPECIMEN / Unknown 05/20/2018 10:50 AM CDT 05/20/2018 3:42 PM CDT Marito Craft MD LAB - PATHOLOGY/CYTO LOGY ORDERABLES Performing Organization Address City/State/[facility] Co de Phone Number [facility] [address] [phone] * BONE MARROW BIOPSY (STL) (05/20/2018 9:00 AM CDT) Case Report Bone Marrow Patholog y Report Case: [id number] Authorizing Provider: Marito Craft MD Collected: 05/20/2018 09:00 AM Pathologist: David Carson MD Received: 05/22/2018 08:01 AM Specimens: A) - Bone Marrow Core, BM18-24 B) - Bone Marrow Clot, BM18-24 C) - Blood Peripheral, BM18-24 D) - Bone Marrow Aspirate, [id number] 05/22/2018 4:44 PM CDT [facility] Final Diagnosis Bone marrow, aspirate, clot section, and core biopsy: - Chronic myeloid leukemia, BCR-ABL1 positive, in accelerated phase (>20% peripheral blood basophils). - Hypercellular marrow with maturing trilineage hematopoiesis and marked myeloid hyperplasia. - See description. Peripheral blood smear: - Leukocytosis with moderate granulocytic left shift. - Absolute basophilia. 05/22/2018 4:44 PM CDT [facility] Comment Overall, the bone marrow specimen is hypercellular for age with maturing trilineage hematopoiesis, marked myeloid hyperplasia, and no evidence of lymphoma, or significant dyspoiesis. There is peripheral blood basophilia (>20%). Additionally, concurrent peripheral blood PCR analysis identifies BCR/ABL1 p210 and p190 transcripts. Taken together, these findings are most consistent with chronic myeloid leukemia, BCR-ABL1 positive, in accelerated phase. Correlation with clinical findings is required. DIRECTOR OF CORPORATE SPONSORSHIPS/NW 05/22/2018 4:44 PM [facility] Peripheral Smear Description CBC Data: WBC: 40.1 4.5-10.0 10^3/uL RBC: 3.72 4.20-5.40 10^6/uL Hemoglobin: 12.4 12.0-15.0 g/dL Hematocrit: 36.3 37.0-47.0% MCV: 97.6 80.0-100.0 FL MCH: 33.3 28.0-34.0 PG MCHC: 34.2 26.0-34.0 G/DL Platelet Ct: 176 150-375 10^3/uL RDW: 14.6 11.5-14.5% Peripheral blood: Manual Differential Count (100 cells): 7% myelocytes, 10% metamyelocytes, 46% neutrophils/bands, 6% lymphocytes, 4% monocytes, 5% eosinophils, and 22% basophils. Leukocyte number: Moderately increased. Granulocyte morphology: Moderate shift to immaturity; absolute increase in eosinophils and basophils; no circulating blasts seen. Lymphocyte morphology: normal. Erythrocyte number: decreased. Erythrocyte morphology: normochromic and normocytic. Anisopoikilocytosis: mild. Polychromasia: not significant. Platelet number: normal. Platelet morphology: normal. 05/22/2018 4:44 PM [facility] Bone Marrow Aspirate Differential count (200 cells): 0.5% blasts, 73.5% maturing myeloid precursors, 5.5% erythroid progenitors, 12% eosinophils, 5.5% basophils, 3% lymphocytes. Specimen quality: adequate. Spicules: Present. Trilineage Hematopoiesis: present. Myeloid:Erythroid ratio: 16.6:1; marked myeloid hyperplasia. Myeloid Maturation: Increased proportions of myelocytes and mature neutrophils; increased eosinophils and basophils. Erythroid Maturation: normal. Megakaryocyte morphology: Several monolobate forms (dwarf megakaryocytes). An iron stain is received for review on the aspirate smear, with appropriately reactive control, shows decreased stainable storage iron, but is suboptimal due to a lack of spicules. Sideroblastic iron is adequate, with no ring sideroblasts seen. 05/22/2018 4:44 PM [facility] Bone Marrow Core Biopsy and Clot Section Description Specimen quality: adequate. Cellularity: 80-90% Trilineage Hematopoiesis: Present. Myeloid to Erythroid ratio: Markedly increased. Myeloid maturation and localization: Bimodal increase of myelocytes and mature neutrophils; no increase in blasts seen. Erythroid maturation and localization: normal. Megakaryocyte number: Normal with occasional dwarf forms. Megakaryocyte distribution: normal. Lymphoid aggregates: absent. Bone trabeculae: normal. Other: Significantly increased number of eosinophils seen. Clot section marrow particles: present. Clot section morphology: similar to core biopsy. Clot section iron (special stain): No stainable storage iron seen. (control worked appropriately) An immunohistochemical stain for CD34 is performed on the core in the [facility] Department of Pathology, with appropriately reactive controls, and highlights a population of blasts comprising 1-2% of overall marrow cellularity. Reticulin and trichrome stains are performed on the core biopsy in the [facility] Department of Pathology, with appropriately reactive controls, to assess for possible marrow fibrosis. There is a no pathologic increase in reticulin fibrosis (MF-0) and no collagen deposition observed. BCR-ABL1 fusion transcript analysis by PCR ([id number]) performed on peripheral blood at [facility] ([facility], [address], [address], [place], [place]) identifies BCR/ABL1 p210 and p190 transcripts. 05/22/2018 4:44 PM [facility] Flow Cytometry Summary Concurrent bone marrow flow cytometry ([id number]) demonstrates no evidence of non-Hodgkin lymphoma or high-grade myeloid neoplasm. 05/22/2018 4:44 PM [facility] Clinical History 05/22/2018 4:44 PM [facility] Materials Received Received are 14 slide(s) and 2 block(s) labeled as S [id number] along with a copy of the outside pathology report. [place] [address]. All materials are returned to the referring institution, along with a copy of our final report. 05/22/2018 4:44 PM [facility] Disclaimer The performance characteristics of all immunohistochemical and indirect immunofluorescence stains (if any) cited in this report were determined by the Histopathology Laboratory of [facility]. Some of these tests were developed by our own laboratory and have not been cleared or approved by the US Food and Drug Administration. The FDA does not require this test to go through premarket FDA review. These tests are used for clinical purposes. They should not be regarded as investigational or for research. This laboratory is certified under the Clinical Laboratory Improvement Amendments (CLIA) as qualified to perform high complexity clinical laboratory testing. This case has been personally reviewed and interpreted by the attending (teaching) pathologist. 05/22/2018 4:44 PM CDT [facility] Embedded Images 05/22/2018 4:44 PM CDT [facility] Pathology/Cytology SPECIMEN FROM BONE MARROW OBTAINED BY ASPIRATION / Unknown 05/20/2018 9:00 AM CDT 05/22/2018 8:01 AM CDT Miscellaneous samples (specimen) BONE MARROW CLOT SPECIMEN / Unknown 05/20/2018 9:00 AM CDT 05/22/2018 8:01 AM CDT Miscellaneous samples (specimen) PERIPHERAL BLOOD / Unknown 05/20/2018 9:00 AM CDT 05/22/2018 8:01 AM CDT Miscellaneous samples (specimen) SPECIMEN FROM BONE MARROW OBTAINED BY ASPIRATION / Unknown 05/20/2018 9:00 AM CDT 05/22/2018 8:01 AM CDT Marito Craft MD LAB - PATHOLOGY/CYTO LOGY ORDERABLES Performing Organization Address City/State/[facility] Co de Phone Number [facility] [address] [phone] Care Teams Nuisance Animal Damage Control Agent Relationship Specialty Start Date End Date Demetrio Torres MD [address] [place] [phone] PCP - General 05/16/18
--- OUTSIDE RECORDS SUMMARY | 2024-10-27 10:56 | XMS_ITS | Referral Summary ---
Author Organization [facility] Address [address] [place] [address] Care Team Providers Care Scan Coordinator Name Role Phone Demetrio Torres MD Primary Care Provider [phone] Source Comments [facility],non-owned Affiliates and Associated Physician Practices is amultiple site organization consisting of ambulatory clinics and hospital sitesin [place], [place], [place] and [place]. This disclosure is being madepursuant to the Care Everywhere program and may not contain all information available regarding this patient. Last updated 18.[facility] [employer] Social History Tobacco Use Types Packs/Day Years Used Date Smoking Tobacco: Never Assessed Sex and Gender Information Value Date Recorded Sex Assigned at Not on file Gender Identity Not on file Sexual Orientation Not on file Plan of Treatment Not on file Care Teams Scan Coordinator Relationship Specialty Start Date End Date Demetrio Torres MD [address] [place] [address] PCP - General 05/16/18
--- OUTSIDE RECORDS SUMMARY | 2024-10-27 10:56 | XMS_ITS | Encounter Summary ---
Author Organization [facility] Address [address] [place] [address] Care Team Providers Care Assembler Steam [employer] Turbine Name Role Phone Demetrio Torres MD Primary Care Provider [phone] Encounter Details Date Type Department Care Team (Late st Contact Info) Description 05/20/2018 Lab Requisition [facility] Care Pathology Lab [address] [place] [address] Marito Craft MD [address] [place] [id number] Chronic myeloid leukemia, BCR/ABL-positive, not having achieved remission (HCC) Social History Tobacco Use Types Packs/Day Years Used Date Smoking Tobacco: Never Assessed Sex and Gender Information Value Date Recorded Sex Assigned at Not on file Gender Identity Not on file Sexual Orientation Not on file documented as of this encounter Plan of Treatment Not on file documented as of this encounter Procedures Procedure Name Priority Date/Time Associated Diagnosis Comments FLOW CYTOMETRY BONE MARROW Routine 05/20/2018 10:50 AM CDT Chronic myeloid leukemia, BCR/ABL-positive, not having achieved remission documented in this encounter Results * FLOW CYTOMETRY BONE MARROW (05/20/2018 10:50 AM CDT) Case Report Flow Cytometry Case: [id number] Authorizing Provider: Marito Craft MD Collected: 05/20/2018 10:50 AM Pathologist: David Carson MD Received: 05/20/2018 03:42 PM Specimen: Bone Marrow 05/21/2018 12:07 PM CDT [facility] Final Diagnosis Bone marrow, flow cytometric immunophenotypic analysis: - No evidence of non-Hodgkin lymphoma or high-grade myeloid neoplasm. - See interpretation. 05/21/2018 12:07 PM CDT [facility] Flow Cytometry Interpretation The [...] the flow cytometry specimen is reviewed for coding quality analyst purposes. Overall, the bone marrow aspirate specimen shows no evidence of involvement by non-Hodgkin lymphoma or a high-grade myeloid neoplasm. Correlation with clinical findings and relevant cytogenetic/molecu lar studies is required. HOUSEKEEPING LEAD/NW 05/21/2018 12:07 PM [facility] Flow Cytometry Results Differential Result Comment Flow Cell Count /uL [id number] Total Viability % 94.0 Lymphocytes % 3 Dim CD45 Region % 3 Monocytes % 9 Granulocytes % 84 05/21/2018 12:07 PM [facility] Reason for test Chronic myeloid leukemia, BCR/ABL-positive, not having achieved remission 205.10 05/21/2018 12:07 PM [facility] Client Specimen ID # [id number] 05/21/2018 12:07 PM [facility] Number of markers 19 were performed. A Flow CD10 A Flow CD13 A Flow CD20 A Flow CD2 A Flow CD14 A Flow CD117 A Flow CD11b A Flow CD11c A Flow CD5 A Flow CD19 A Flow CD33 A Flow CD34 A Flow CD45 A Flow CD7 A Flow CD56 A Flow CD64 A [place]+CD19+ A Lambda+CD19+ A Flow HLA-DR 05/21/2018 12:07 PM [facility] Disclaimer Test performed at [facility], [address] [place] [address], [address]. *The established laboratory minimum viability is 70%. [...] complexity clinical testing. 05/21/2018 12:07 PM CDT [facility] Embedded Images 12:07 PM CDT [facility] Pathology/Cytolo gy BONE MARROW SPECIMEN / Unknown 05/20/2018 10:50 AM CDT 05/20/2018 3:42 PM CDT Marito Craft MD LAB - PATHOLOGY/CYTO LOGY ORDERABLES Performing Organization Address City/State/[facility] Co de Phone Number [facility] [address] [phone] documented in this encounter Visit Diagnoses Diagnosis Chronic myeloid leukemia, BCR/ABL-positive, not having achieved remission (HCC) Chronic myeloid leukemia, without mention of having achieved remission documented in this encounter Care Teams Assembler [employer] Turbine Relationship Specialty Start Date End Date Demetrio Torres MD [address] [place] [phone] PCP - General 05/16/18 documented as of this encounter
--- OUTSIDE RECORDS SUMMARY | 2024-10-27 10:56 | XMS_ITS | Encounter Summary ---
Author Organization [facility] Address [address] [place] [address] Care Team Providers Care Aboriginal Ceremonial Celebrant Name Role Phone Demetrio Torres MD Primary Care Provider [phone] Encounter Details Date Type Department Care Team (Late st Contact Info) Description 05/22/2018 Lab Requisition [facility] Care Pathology Lab [address] [place] [address] Marito Craft MD [address] [place] [id number] Social History Tobacco Use Types Packs/Day Years Used Date Smoking Tobacco: Never Assessed Sex and Gender Information Value Date Recorded Sex Assigned at Not on file Gender Identity Not on file Sexual Orientation Not on file documented as of this encounter Plan of Treatment Not on file documented as of this encounter Procedures Procedure Name Priority Date/Time Associated Diagnosis Comments BONE MARROW BIOPSY (STL) Routine 05/20/2018 9:00 AM CDT documented in this encounter Results * BONE MARROW BIOPSY (STL) (05/20/2018 9:00 AM CDT) Case Report Bone Marrow Patholog y Report Case: [id number] Authorizing Provider: Marito Craft MD Collected: 05/20/2018 09:00 AM Pathologist: Davdi Carson MD Received: 05/22/2018 08:01 AM Specimens: A) - Bone Marrow Core, BM18-24 B) - Bone Marrow Clot, BM18-24 C) - Blood Peripheral, BM18-24 D) - Bone Marrow Aspirate, [id number] 05/22/2018 4:44 PM [facility]T [facility] Final Diagnosis Bone marrow, aspirate, clot section, and core biopsy: - Chronic myeloid leukemia, BCR-ABL1 positive, in accelerated phase (>20% peripheral blood basophils). - Hypercellular marrow with maturing trilineage hematopoiesis and marked myeloid hyperplasia. - See description. Peripheral blood smear: - Leukocytosis with moderate granulocytic left shift. - Absolute basophilia. 05/22/2018 4:[address] [facility] Comment Overall, the bone [...] phase. Correlation with clinical findings is required. BOOKING CLERK/NW 05/22/2018 4:[address] [facility] Peripheral Smear Description CBC Data: [...] normal. Platelet morphology: normal. 05/22/2018 4:[address] [facility] Bone Marrow Aspirate Differential count [...] no ring sideroblasts seen. 05/22/2018 4:[address] [facility] Bone Marrow Core Biopsy and [...] is performed on the core in the [facility] Department of Pathology, with appropriately reactive controls, and highlights a population of blasts comprising 1-2% of overall marrow cellularity. Reticulin and trichrome stains are performed on the core biopsy in the [facility] Department of Pathology, with appropriately reactive controls, to assess for possible marrow fibrosis. There is a no pathologic increase in reticulin fibrosis (MF-0) and no collagen deposition observed. BCR-ABL1 fusion transcript analysis by PCR ([id number]) performed on peripheral blood at [facility] ([email or web address], [address], [address], [place], [place]) identifies BCR/ABL1 p210 and p190 transcripts. 05/22/2018 4:[address] [facility] Flow Cytometry Summary Concurrent bone marrow flow cytometry ([id number]) demonstrates no evidence of non-Hodgkin lymphoma or high-grade myeloid neoplasm. 05/22/2018 4:[address] [facility] Clinical History 05/22/2018 4:[address] [facility] Materials Received Received are 14 slide(s) and 2 block(s) labeled as S [id number] along with a copy of the outside pathology report. The materials originate from [place] [id number]. All materials are returned to the referring institution, along with a copy of our final report. 05/22/2018 4:44 PM T [facility] Disclaimer The performance characteristics of all immunohistochemical and indirect immunofluorescence stains (if any) cited in this report were determined by the Histopathology Laboratory of [facility]. Some of these tests were developed by [...] the attending (teaching) pathologist. 05/22/2018 4:44 PM T [facility] Embedded Images 05/22/2018 4:44 PM T [facility] Pathology/Cytology SPECIMEN FROM BONE [...] Craft MD LAB - PATHOLOGY/CYTO LOGY ORDERABLES [facility] [address] [phone] documented in this encounter Visit Diagnoses Not on filedocumented in this encounter Care Teams Aboriginal Ceremonial Celebrant Relationship Specialty Start Date End Date Demetrio Torres MD [address] [place] [address] PCP - General 05/16/18 documented as of this encounter
[2024-10-27 10:59] LABS: MALB Creatinine Ratio < 8.7 mg/g (0-30); Microalbumin Urine Random < 6.0 mg/L (0-16.7)
[2024-10-27 11:15] LABS: Free T4 Free Thyroxine 1.24 ng/dL (0.78-2.19)
[2024-10-27 11:33] LABS: Hemoglobin A1C 5.3 % (<5.7)
== END 2024-10-27 09:49 | disposition home or self-care (01) ==
LOC: ANHLAB 09:50
PROVIDERS: PCP Internal Medicine; Visit Provider Internal Medicine
DX: E11.9 Type 2 diabetes mellitus without complications (principal); Z79.899 Other long term (current) drug therapy; Z13.29 Encounter for screening for other suspected endocrine disorder; I10 Essential (primary) hypertension; E78.2 Mixed hyperlipidemia
CPT/HCPCS: 36415; 80053; 80061; 81001; 82043; 83036; 84439; 84443; 85025; 87086

== ENCOUNTER 2024-11-11 10:07 | Outpatient (CLI) | payer MEDICARE, OTHER, SELFPAY ==
[2024-11-11 10:31] LABS: Basophils Absolute Auto 0.1 K/mm3 (0.0-0.1); Basophils Percent Auto 0.7 % (0.2-1.2); Eosinophils Absolute Auto 0.2 K/mm3 (0-0.3); Eosinophils Percent Auto 2.5 % (0-4.4); Hematocrit 39.5 % (37.0-47.0); Hemoglobin 13.2 g/dL (12.0-15.0); Immature Granulocyte Absolute 0.04 K/mm3 (0.00-0.031); Immature Granulocyte Percent A 0.6 % (0-0.5); Lymphocytes Absolute Auto 1.92 K/mm3 (0.9-3.2); Lymphocytes Percent Auto 28.7 % (18.3-44.2); Mean Corpuscular HGB Conc 33.4 g/dl (32-36); Mean Corpuscular Hemoglobin 28.9 pg (26-34); Mean Corpuscular Volume 86.4 fl (80-100); Mean Platelet Volume 9.8 fl (7.4-10.4); Monocytes Absolute Auto 0.7 K/mm3 (0.1-0.6); Monocytes Percent Auto 9.9 % (2.6-8.5); Neutrophils Absolute Auto 3.9 K/mm3 (1.3-6.7); Neutrophils Percent Auto 57.6 % (45.5-73.1); Platelet Count Result 206 k/mm3 (150-375); Red Blood Count 4.57 M/mm3 (4.2-5.4); Red Cell Distribution Width 13.9 % (11.5-14.5); White Blood Count 6.7 K/mm3 (4.5-10.0)
--- OUTSIDE RECORDS SUMMARY | 2024-11-11 11:23 | XMS_ITS | Encounter Summary ---
Author Organization [facility] Address [address] [place] [address] Care Team Providers Care Wax Blender Name Role Phone Demetrio Torres MD Primary Care Provider [phone] Encounter Details Date Type Department Care Team (Late st Contact Info) Description 05/22/2018 Lab Requisition [facility] Care Pathology Lab [address] [place] [address] Marito Craft MD [address] [facility] [address] [place] [address] Social History Tobacco Use Types Packs/Day [...] Report Bone Marrow Patholog y Report Case: [id number] Authorizing Provider: Marito Craft MD Collected: 05/20/2018 [...] shift. - Absolute basophilia. 05/22/2018 4:44 PM [facility] Comment Overall, the bone [...] phase. Correlation with clinical findings is required. WIRE BENDER HAND/NW 05/22/2018 4:44 PM [facility] Peripheral Smear Description CBC [...] normal. Platelet morphology: normal. 05/22/2018 4:44 PM [facility] Bone Marrow Aspirate Differential [...] no ring sideroblasts seen. 05/22/2018 4:44 PM [facility] Bone Marrow Core Biopsy [...] is performed on the core in the [facility] Department of Pathology, with appropriately reactive controls, and highlights a population of blasts comprising 1-2% of overall marrow cellularity. Reticulin and trichrome stains are performed on the core biopsy in the [facility] Department of Pathology, with appropriately reactive controls, to assess for possible marrow fibrosis. There is a no pathologic increase in reticulin fibrosis (MF-0) and no collagen deposition observed. BCR-ABL1 fusion transcript analysis by PCR ([id number]) performed on peripheral blood at [facility] ([facility], [address], [address], [place], [place]) identifies BCR/ABL1 p210 and p190 transcripts. 05/22/2018 4:44 PM [facility] Flow Cytometry Summary Concurrent bone marrow flow cytometry ([id number]) demonstrates no evidence of non-Hodgkin lymphoma or high-grade myeloid neoplasm. 05/22/2018 4:44 PM [facility] Clinical History 05/22/2018 4:44 PM [facility] Materials Received Received are 14 slide(s) and 2 block(s) labeled as S [id number] along with a copy of the outside pathology report. The materials originate from [place] [id number]. All materials are returned to the referring institution, along with a copy of our final report. 05/22/2018 4:44 PM [facility] Disclaimer The performance characteristics of all immunohistochemical and indirect immunofluorescence stains (if any) cited in this report were determined by the Histopathology Laboratory of [facility]. Some of these tests were developed [...] attending (teaching) pathologist. 05/22/2018 4:44 PM [facility] Embedded Images 05/22/2018 4:44 PM T [facility] Pathology/Cytology SPECIMEN FROM BONE [...] Craft MD LAB - PATHOLOGY/CYTO LOGY ORDERABLES [facility] [address] [phone] documented in this encounter Visit Diagnoses Not on filedocumented in this encounter Care Teams Wax Blender Relationship Specialty Start Date End Date Demetrio Torres MD [address] [place] [address] PCP - General 05/16/18 documented as of this encounter
--- OUTSIDE RECORDS SUMMARY | 2024-11-11 11:23 | XMS_ITS | Encounter Summary ---
Author Organization [facility] Address [address] [place] [address] Care Team Providers Care Players Assistant Name Role Phone Demetrio Torres MD Primary Care Provider [phone] Encounter Details Date Type Department Care Team (Late st Contact Info) Description 05/20/2018 Lab Requisition [facility] Care Pathology Lab [address] [place] [address] Marito Craft MD [address] [place] [address] Chronic myeloid leukemia, BCR/ABL-positive, not having achieved remission Social History Tobacco Use Types Packs/Day Years [...] AM CDT) Case Report Flow Cytometry Case: [id number] Authorizing Provider: Marito Craft MD Collected: 05/20/2018 [...] the flow cytometry specimen is reviewed for quality improvement analyst purposes. Overall, the bone marrow aspirate specimen shows no evidence of involvement by non-Hodgkin lymphoma or a high-grade myeloid neoplasm. Correlation with clinical findings and relevant cytogenetic/molecu lar studies is required. MACHINE OPERATOR REPLANTER/NW 05/21/2018 12:07 PM [facility] Flow Cytometry Results Differential Result Comment Flow Cell Count /uL [id number] Total Viability % 94.0 Lymphocytes % 3 Dim CD45 Region % 3 Monocytes % 9 Granulocytes % 84 05/21/2018 12:07 PM [facility] Reason for test Chronic myeloid leukemia, BCR/ABL-positive, not having achieved remission 205.10 05/21/2018 12:07 PM [facility] Client Specimen ID # [id number] 05/21/2018 12:07 PM [facility] Number of markers 19 were performed. A Flow CD10 A Flow CD13 A Flow CD20 A Flow CD2 A Flow CD14 A Flow CD117 A Flow CD11b A Flow CD11c A Flow CD5 A Flow CD19 A Flow CD33 A Flow CD34 A Flow CD45 A Flow CD7 A Flow CD56 A Flow CD64 A [place]+CD19+ A Lambda+CD19+ A Flow HLA-DR 05/21/2018 12:07 PM [facility] Disclaimer Test performed at [facility], [facility] [place], [place], [address]. *The established laboratory minimum viability is 70%. [...] complexity clinical testing. 05/21/2018 12:07 PM CDT [facility] PATH[facility] LAB Embedded Images 12:07 PM CDT [facility] Pathology/Cytolo gy BONE MARROW SPECIMEN / Unknown 05/20/2018 10:50 AM CDT 05/20/2018 3:42 PM CDT Marito Craft MD LAB - PATHOLOGY/CYTO LOGY ORDERABLES Performing Organization Address City/State/[facility] Co de Phone Number [facility] PATH[facility] [address] [phone] documented in this encounter Visit Diagnoses Diagnosis Chronic myeloid leukemia, BCR/ABL-positive, not having achieved remission (HCC) Chronic myeloid leukemia, without mention of having achieved remission documented in this encounter Care Teams Players Assistant Relationship Specialty Start Date End Date Demetrio Torres MD [address] [place] [phone] PCP - General 05/16/18 documented as of this encounter
--- OUTSIDE RECORDS SUMMARY | 2024-11-11 11:23 | XMS_ITS | Clinical Summary ---
Author Organization [facility] Address [address] [place] [address] Care Team Providers Care Bilingual Teacher Aide Name Role Phone Unavailable Primary Care Provider [...]
--- OUTSIDE RECORDS SUMMARY | 2024-11-11 11:23 | XMS_ITS | Clinical Summary ---
Author Organization [facility] Address [address] [facility] [place] [address] Care Team Providers Care Rework Machine Operator Name Role Phone Demetrio Torres MD Primary Care Provider [phone] Source Comments [facility] [employer],non-owned Affiliates and Associated Physician Practices is amultiple site organization consisting of ambulatory clinics and hospital sitesin [place] and [place]. This disclosure is being madepursuant to the Care Everywhere program and may not contain all information available regarding this patient. Last updated 18.[facility] [employer] Social History Tobacco Use Types Packs/Day Years [...] to complete this topic MENINGOCOCCAL (Group B) VACC INE SHARED DECISION-MAKING Aged Out No longer eligibl e based on patient's age to complete this topic MENINGOCOCCAL GROUPS A/C/Y/W VACCINE Aged Out No longer eligible b ased on patient's age to complete this topic Care Teams Rework Machine Operator Relationship Specialty Start Date End Date Demetrio Torres MD [address] [place] [address] PCP - General 05/16/18
--- OUTSIDE RECORDS SUMMARY | 2024-11-11 11:23 | XMS_ITS | Clinical Summary ---
Author Organization [facility] Address [address] [place] [address] Care Team Providers Care Clinical Radiologist Name Role Phone Demetrio Torres MD Primary [...] Data STL ABSTRACTION Provider, Abstract 09/24/2024 Telephone [facility] [address] [place] [address] Nolan Callaway MD Assistance program follow up [...] Description 11/18/2024 1:00 PM CDT Office Visit [facility] [address] [place] [phone] Nolan Callaway MD [address] [facility] [address] [place] [address] Health Maintenance Due Date Last Done [...] Q 5 years Discontinued Insurance MEDICARE RAIL[place] [address] [facility] [id number] [address]ARE [address] Care Teams Clinical Radiologist Relationship Specialty Start Date End Date Demetrio Torres MD [address] [place] [address] PCP - General Internal Medicine 05/16/18
[2024-11-11 11:56] LABS: Alanine Aminotransferase 29 U/L (6-35); Albumin Level 4.5 g/dL (3.5-5.1); Alkaline Phosphatase 53 U/L (38-126); Anion Gap 7 mmol/L (4-12); Aspartate Amino Transferase 30 U/L (14-36); Bilirubin,Total 0.8 mg/dL (0.2-1.3); Blood Urea Nitrogen 15 mg/dL (7-17); Calcium 10.3 mg/dL (8.4-10.2); Carbon Dioxide 29 mmol/L (22-30); Chloride 99 mmol/L (98-107); Estimated Glomerular Filt Rate 51; Glucose 103 mg/dL (65-110); Potassium 4.2 mmol/L (3.4-5.0); Sodium 135 mmol/L (137-145)
[2024-11-16 12:59] LABS: BCR/abl P190 NOT DETECTED; BCR/abl P210 NOT DETECTED; BCR/abl Source PERIPHERAL
== END 2024-11-11 10:08 | disposition home or self-care (01) ==
PROVIDERS: PCP Internal Medicine; Visit Provider Internal Medicine Hematology & Oncology
DX: C92.10 Chronic myeloid leukemia, BCR/ABL-positive, not having achieved remission (principal)
CPT/HCPCS: 36415; 80053; 85025

== ENCOUNTER 2025-03-08 07:20 | Outpatient (CLI) | payer MEDICARE, OTHER, SELFPAY ==
--- OUTSIDE RECORDS SUMMARY | 2025-03-08 07:23 | XMS_ITS | Encounter Summary ---
Author Organization [facility] Address [address] [place] [address] Care Team Providers Care Sweetbread Trimmer Name Role Phone Demetrio Torres MD Primary Care Provider [phone] Encounter Details Date Type Department Care Team (Late st Contact Info) Description 05/20/2018 Lab Requisition [facility] Care Pathology Lab [address] [place] [address] Marito Craft MD [address] [place] [address] Chronic myeloid leukemia, BCR/ABL-positive, not having achieved remission Social History Tobacco Use Types Packs/Day Years Used Date Smoking Tobacco: Never Assessed Comments Unknown Sex and Gender Information Value Date Recorded Sex Assigned at Not on file Legal Sex Female 11:23 AM CDT Gender Identity Not on file Sexual [...] AM CDT) Case Report Flow Cytometry Case: [id number] Authorizing Provider: Marito Craft MD Collected: 05/20/2018 10:50 AM Pathologist: David Carson MD Received: 05/20/2018 03:42 PM Specimen: Bone Marrow 05/21/2018 12:07 PM CDT [facility] Final Diagnosis Bone marrow, flow cytometric immunophenotypic analysis: - No evidence of non-Hodgkin lymphoma or high-grade myeloid neoplasm. - See interpretation. 05/21/2018 12:07 PM CDT [facility] at 1207 CDT Flow Cytometry Interpretation The bone marrow specimen [...] the flow cytometry specimen is reviewed for manager quality purposes. Overall, the bone marrow aspirate specimen shows no evidence of involvement by non-Hodgkin lymphoma or a high-grade myeloid neoplasm. Correlation with clinical findings and relevant cytogenetic/molecu lar studies is required. COTTON FACTOR/NW 05/21/2018 12:07 PM [facility] Flow Cytometry Results Differential Result Comment Flow Cell Count /uL [id number] Total Viability % 94.0 Lymphocytes % 3 Dim CD45 Region % 3 Monocytes % 9 Granulocytes % 84 05/21/2018 12:07 PM [facility] Reason for test Chronic myeloid leukemia, BCR/ABL-positive, not having achieved remission 205.10 05/21/2018 12:07 PM [facility] Client Specimen ID # [id number] 05/21/2018 12:07 PM [facility] Number of markers 19 were performed. A Flow CD10 A Flow CD13 A Flow CD20 A Flow CD2 A Flow CD14 A Flow CD117 A Flow CD11b A Flow CD11c A Flow CD5 A Flow CD19 A Flow CD33 A Flow CD34 A Flow CD45 A Flow CD7 A Flow CD56 A Flow CD64 A [place]+CD19+ A Lambda+CD19+ A Flow HLA-DR 05/21/2018 12:07 PM [facility] Disclaimer Test performed at [facility], [address] [place] [address], [address]. *The established laboratory minimum viability is 70%. [...] complexity clinical testing. 05/21/2018 12:07 PM CDT [facility] Embedded Images 12:07 PM CDT [facility] Pathology/Cytolo gy BONE MARROW SPECIMEN / Unknown 05/20/2018 10:50 AM CDT 05/20/2018 3:42 PM CDT us Marito Craft MD LAB - PATHOLOGY/CYTOLOGY ORDER ASHLEY Final Result [facility] [address] [phone] documented in this encounter Visit Diagnoses Diagnosis Chronic myeloid leukemia, BCR/ABL-positive, not having achieved remission (HCC) Chronic myeloid leukemia, without mention of having achieved remission documented in this encounter Care Teams Sweetbread Trimmer Relationship Specialty Start Date End Date Demetrio Torres MD [address] [place] [address] PCP - General 05/16/18 documented as of this encounter
--- OUTSIDE RECORDS SUMMARY | 2025-03-08 07:23 | XMS_ITS | Clinical Summary ---
Author Organization [facility] Address [address] [facility] [place] [address] Care Team Providers Care Clinical Abstractor Name Role Phone Demetrio Torres MD Primary Care Provider [phone] Source Comments [facility],non-owned Affiliates and Associated Physician Practices is amultiple site organization consisting of ambulatory clinics and hospital sitesin [place], [place], [place] and [place]. This disclosure is being madepursuant to the Care Everywhere program and may not contain all information available regarding this patient. Last updated 18.[facility] Social History Tobacco Use Types Packs/Day Years Used Date Smoking Tobacco: Never Assessed Comments Unknown Sex and Gender Information Value Date Recorded Sex Assigned at Not on file Legal Sex Female 11:23 AM CDT Gender Identity Not on file Sexual Orientation Not on file Plan of Treatment Health Maintenance Due Date Last Done Comments BONE DENSITY TESTING 1945 HEPATITIS C SCREENING 08/01/1964 DTAP/TDAP/TD VACCINES (1 - Tdap) 1965 PNEUMOCOCCAL VACCINE 50+ (1 of 1 - PCV) 1996 ZOSTER VACCINE (1 of 2) 1996 Respiratory Syncytial Virus (RSV) Vaccine Pt: or over 60 yrs (1 - 1-dose 75+ series) 2021 COVID-19 VACCINE ( - 2023-2 5 season) 2024 DEPRESSION SCREENING 08/19/2024 INFLUENZA VACCINE (#1) 2025 HEPATITIS B VACCINE Aged Out No longe [...] on patient's age to complete this topic Insurance MEDICARE Care Teams Clinical Abstractor Relationship Specialty Start Date End Date Demetrio Torres MD [address] [place] [address] PCP - General 05/16/18
--- OUTSIDE RECORDS SUMMARY | 2025-03-08 07:23 | XMS_ITS | Clinical Summary ---
Author Organization [facility] Address [address] [place] [address] Care Team Providers Care Nurse Administrator Name Role Phone Unavailable Primary Care Provider [...] Td Vaccines ( 1 - Tdap) 1965 Pneumococcal Vaccine: 50+ Ye ars (1 of 1 - PCV) 1996 Zoster Vaccines (1 of 2) 1996 Dexa Scan (General) 2011 RSV Immunization or 60+ Years (1 - 1-dose 75+ series) 2021 COVID-19 Vaccine (2023-2 5 season) 2024 Meningococcal B Vaccine Aged Out No l onger eligible based on patient's age to complete this topic Meningococcal Vaccine Aged Out No anne sudhir eligible based on patient's age to complete this topic RSV Immunizations Under 20 Months Aged Out No longer eligible based on patient's age to complete this topic
--- OUTSIDE RECORDS SUMMARY | 2025-03-08 07:23 | XMS_ITS | Encounter Summary ---
Author Organization [facility] Address [address] [facility] [place] [address] Care Team Providers Care Professional Tutor Name Role Phone Demetrio Torres MD Primary Care Provider [phone] Encounter Details Date Type Department Care Team (Late st Contact Info) Description 05/22/2018 Lab Requisition [facility] Care Pathology Lab [address] [place] [address] Marito Craft MD [address] [place] [address] Social History Tobacco Use Types Packs/Day [...] Report Bone Marrow Patholog y Report Case: [id number] Authorizing Provider: Marito Craft MD Collected: 05/20/2018 09:00 AM Pathologist: David Carson MD Received: 05/22/2018 08:01 AM Specimens: A) - Bone Marrow Core, [id number] B) - Bone Marrow Clot, [id number] C) - Blood Peripheral, [id number] D) - Bone Marrow Aspirate, [id number] 05/22/2018 4:44 PM CDT [facility] Final Diagnosis Bone marrow, aspirate, clot section, and core biopsy: - Chronic myeloid leukemia, BCR-ABL1 positive, in accelerated phase (>20% peripheral blood basophils). - Hypercellular marrow with maturing trilineage hematopoiesis and marked myeloid hyperplasia. - See description. Peripheral blood smear: - Leukocytosis with moderate granulocytic left shift. - Absolute basophilia. 05/22/2018 4:44 PM [facility] PATH[facility] at 1644 CDT AP Comment Overall, the bone marrow specimen is [...] phase. Correlation with clinical findings is required. MACHINE DESIGNER/NW 05/22/2018 4:44 PM [facility] Peripheral Smear Description CBC [...] normal. Platelet morphology: normal. 05/22/2018 4:44 PM [facility] Bone Marrow Aspirate Differential [...] no ring sideroblasts seen. 05/22/2018 4:44 PM [facility] Bone Marrow Core Biopsy [...] is performed on the core in the [facility] Department of Pathology, with appropriately reactive controls, and highlights a population of blasts comprising 1-2% of overall marrow cellularity. Reticulin and trichrome stains are performed on the core biopsy in the [facility] Department of Pathology, with appropriately reactive controls, to assess for possible marrow fibrosis. There is a no pathologic increase in reticulin fibrosis (MF-0) and no collagen deposition observed. BCR-ABL1 fusion transcript analysis by PCR ([id number]) performed on peripheral blood at [facility] ([employer], [address], [address], [place], [place]) identifies BCR/ABL1 p210 and p190 transcripts. 05/22/2018 4:44 PM [facility] Flow Cytometry Summary Concurrent bone marrow flow cytometry ([id number]) demonstrates no evidence of non-Hodgkin lymphoma or high-grade myeloid neoplasm. 05/22/2018 4:44 PM [facility] Clinical History 05/22/2018 4:44 PM [facility] Materials Received Received are 14 slide(s) and 2 block(s) labeled as S [id number] along with a copy of the outside pathology report. The materials originate from [place] [id number]. All materials are returned to the referring institution, along with a copy of our final report. 05/22/2018 4:44 PM [facility] Disclaimer The performance characteristics of all immunohistochemical and indirect immunofluorescence stains (if any) cited in this report were determined by the Histopathology Laboratory of [facility]. Some of these tests were developed by [...] the attending (teaching) pathologist. 05/22/2018 4:44 PM [facility] Embedded Images 05/22/2018 4:44 PM [facility] Pathology/Cytology SPECIMEN FROM BONE MARROW [...] AM CDT Marito Craft MD LAB - PATHOLOGY/CYTOLOGY ORDER ASHLEY Final Result Performing Organization Address City/State/[facility] Co de Phone Number [facility] [address] [phone] documented in this encounter Visit Diagnoses Not on filedocumented in this encounter Care Teams Professional Tutor Relationship Specialty Start Date End Date Demetrio Torres MD [address] [place] [address] PCP - General 05/16/18 documented as of this encounter
--- OUTSIDE RECORDS SUMMARY | 2025-03-08 07:23 | XMS_ITS | Clinical Summary ---
Author Organization [facility] Address [address] [place] [address] Care Team Providers Care Field Appraiser Name Role Phone Demetrio Torres MD Primary [...] Encounters Date Type Department Care Team Description 03/03/2025 External Device Data STL ABSTRACTION Provider, Abstract 03/02/2025 External Device Data STL ABSTRACTION Provider, Abstract 01/05/2025 External Device Data STL ABSTRACTION Provider, Abstract [...] Sign Reading Time Taken Comments Blood Pressure 174/63 11/18/2024 1:07 PM CDT Pulse 86 11/18/2024 1:01 PM CDT Temperature 36.3 C (97.4 F) 11/18/2024 1:01 PM CDT Respiratory Rate 15 11/18/2024 1:01 PM CDT Oxygen Saturation 97% 11/18/2024 1:01 PM CDT Inhaled Oxygen Concentration - - Weight 114.9 kg (253 lb 3.2 oz) 11/18/2024 1:01 PM CDT Height 176.5 cm (5' 9.5) 03/22/2022 1:12 PM CDT Body Mass Index 36.86 03/22/2022 1:12 PM CDT Plan of Treatment Upcoming Encounters Date Type Department Care Team (Late st Contact Info) Description 05/25/2025 1:00 PM CDT Office Visit [facility] - [place] [address] [facility] [address] [place] [address] Nolan Callaway MD [address] [facility] [address] [place] [address] Health Maintenance Due Date Last Done Comments DTAP/TDAP/TD VACCINES (1 - Tdap) 1965 PNEUMOCOCCAL VACCINE 50+ YEA RS (1 of 2 - PCV) 1965 ZOSTER VACCINE (1 of 2) 1965 RSV VACCINE (60+ or ) (1 - 1-dose 75+ series) 2021 INFLUENZA VACCINE (#1) 2025 OSTEOPOROSIS SCREENING 02/02/2026 02/02/2021 COLORECTAL SCREENING Discontinued 06/12/2023, 03/11/20 Colorectal Cancer Screening Discontinued FIT-DNA Q 3 years Discontinued FIT/FOBT Q 1 year Discontinued Flex Sig/CT Colonography Q 5 years Discontinued Insurance MEDICARE RAILROAD [place] [id number] [address] Care Teams Field Appraiser Relationship Specialty Start Date End Date Demetrio Torres MD [address] [place] [address] PCP - General Internal Medicine 05/16/18
[2025-03-08 09:09] LABS: Hemoglobin A1C 5.4 % (<5.7)
[2025-03-08 09:37] LABS: Anion Gap 11 mmol/L (4-12); Blood Urea Nitrogen 20 mg/dL (7-17); Calcium 10.0 mg/dL (8.4-10.2); Carbon Dioxide 24 mmol/L (22-30); Chloride 100 mmol/L (98-107); Cholesterol 160 mg/dL (0-200); Estimated Glomerular Filt Rate 51; Glucose 109 mg/dL (65-110); HDL Direct 54 mg/dL; Potassium 4.0 mmol/L (3.4-5.0); Sodium 135 mmol/L (137-145); Triglycerides 117 mg/dL (<150)
== END 2025-03-08 07:21 | disposition home or self-care (01) ==
LOC: ANHLAB 07:21
PROVIDERS: PCP Internal Medicine; Visit Provider Internal Medicine
DX: I10 Essential (primary) hypertension (principal); E55.9 Vitamin D deficiency, unspecified; E11.9 Type 2 diabetes mellitus without complications; E78.2 Mixed hyperlipidemia
CPT/HCPCS: 36415; 80048; 80061; 82306; 83036

== ENCOUNTER 2025-05-19 08:42 | Outpatient (CLI) | payer MEDICARE, OTHER, SELFPAY ==
--- OUTSIDE RECORDS SUMMARY | 2025-05-19 08:56 | XMS_ITS | Encounter Summary ---
Author Organization [facility] Address [address] [place] [address] Care Team Providers Care Plate Cutter Name Role Phone Demetrio Torres MD Primary Care Provider [phone] Encounter Details Date Type Department Care Team (Late st Contact Info) Description 05/22/2018 Lab Requisition [facility] Care Pathology Lab [address] [place] [address] Marito Craft MD [address] [place] [address] Social History Tobacco Use Types Packs/Day [...] Report Bone Marrow Patholog y Report Case: [id number] Authorizing Provider: Marito Craft MD Collected: 05/20/2018 [...] shift. - Absolute basophilia. 05/22/2018 4:44 PM [facility] at 1644 CDT AP Comment [...] phase. Correlation with clinical findings is required. MANAGER ANDROID/NW 05/22/2018 4:44 PM [facility] Peripheral Smear Description CBC [...] normal. Platelet morphology: normal. 05/22/2018 4:44 PM [facility] Bone Marrow Aspirate Differential [...] no ring sideroblasts seen. 05/22/2018 4:44 PM [facility] Bone Marrow Core Biopsy [...] is performed on the core in the [facility] Department of Pathology, with appropriately reactive controls, and highlights a population of blasts comprising 1-2% of overall marrow cellularity. Reticulin and trichrome stains are performed on the core biopsy in the [facility] Department of Pathology, with appropriately reactive controls, to assess for possible marrow fibrosis. There is a no pathologic increase in reticulin fibrosis (MF-0) and no collagen deposition observed. BCR-ABL1 fusion transcript analysis by PCR ([id number]) performed on peripheral blood at [facility] ([employer], [address], [address], [place], [place]) identifies BCR/ABL1 p210 and p190 transcripts. 05/22/2018 4:44 PM [facility] Flow Cytometry Summary Concurrent bone marrow flow cytometry ([id number]) demonstrates no evidence of non-Hodgkin lymphoma or high-grade myeloid neoplasm. 05/22/2018 4:44 PM [facility] Clinical History 05/22/2018 4:44 PM [facility] Materials Received Received are 14 slide(s) and 2 block(s) labeled as S [id number] along with a copy of the outside pathology report. The materials originate from [place] [id number]. All materials are returned to the referring institution, along with a copy of our final report. 05/22/2018 4:44 PM [facility] Disclaimer The performance characteristics of all immunohistochemical and indirect immunofluorescence stains (if any) cited in this report were determined by the Histopathology Laboratory of [facility]. Some of these tests were developed by [...] the attending (teaching) pathologist. 05/22/2018 4:44 PM [facility] Embedded Images 05/22/2018 4:44 PM [facility] Pathology/Cytology SPECIMEN FROM BONE [...] ORDER ASHLEY Final Result Performing Organization Address City/State/[facility] Co de Phone Number [facility] PATHOLOGY LAB [address] [phone] documented in this encounter Visit Diagnoses Not on filedocumented in this encounter Care Teams Plate Cutter Relationship Specialty Start Date End Date Demetrio Torres MD [address] [place] [address] PCP - General 05/16/18 documented as of this encounter
--- OUTSIDE RECORDS SUMMARY | 2025-05-19 08:56 | XMS_ITS | Encounter Summary ---
Author Organization [facility] Address [address] [place] [address] Care Team Providers Care Real Estate Sales Agent Name Role Phone Demetrio Torres MD Primary Care Provider [phone] Encounter Details Date Type Department Care Team (Late st Contact Info) Description 05/20/2018 Lab Requisition [facility] Care Pathology Lab [address] [place] [address] Marito Craft MD [address] [place] [address] Chronic myeloid leukemia, BCR/ABL-positive, not having [...] AM CDT) Case Report Flow Cytometry Case: [id number] Authorizing Provider: Marito Craft MD Collected: 05/20/2018 [...] flow cytometry specimen is reviewed for quality control tech purposes. Overall, the bone marrow aspirate specimen shows no evidence of involvement by non-Hodgkin lymphoma or a high-grade myeloid neoplasm. Correlation with clinical findings and relevant cytogenetic/molecu lar studies is required. BIOINFORMATICS COMPUTER SCIENTIST/NW 05/21/2018 12:07 PM [facility] Flow Cytometry Results Differential Result Comment Flow Cell Count /uL [id number] Total Viability % 94.0 Lymphocytes % 3 Dim CD45 Region % 3 Monocytes % 9 Granulocytes % 84 05/21/2018 12:07 PM [facility] Reason for test Chronic myeloid leukemia, BCR/ABL-positive, not having achieved remission 205.10 05/21/2018 12:07 PM [facility] Client Specimen ID # [id number] 05/21/2018 12:07 PM [facility] Number of markers 19 were performed. A Flow CD10 A Flow CD13 A Flow CD20 A Flow CD2 A Flow CD14 A Flow CD117 A Flow CD11b A Flow CD11c A Flow CD5 A Flow CD19 A Flow CD33 A Flow CD34 A Flow CD45 A Flow CD7 A Flow CD56 A Flow CD64 A [place]+CD19+ A Lambda+CD19+ A Flow HLA-DR 05/21/2018 12:07 PM [facility] Disclaimer Test performed at [facility], [address] [place] [address], [address]. *The established laboratory minimum viability is 70%. [...] complexity clinical testing. 05/21/2018 12:07 PM CDT [facility] Embedded Images 12:07 PM CDT [facility] Pathology/Cytolo gy BONE MARROW SPECIMEN / Unknown 05/20/2018 10:50 AM CDT 05/20/2018 3:42 PM CDT us Marito Craft MD LAB - PATHOLOGY/CYTOLOGY ORDER ASHLEY Final Result [facility] [address] [phone] documented in this encounter Visit Diagnoses Diagnosis Chronic myeloid leukemia, BCR/ABL-positive, not having achieved remission (HCC) Chronic myeloid leukemia, without mention of having achieved remission documented in this encounter Care Teams Real Estate Sales Agent Relationship Specialty Start Date End Date Demetrio Torres MD [address] [place] [address] PCP - General 05/16/18 documented as of this encounter
--- OUTSIDE RECORDS SUMMARY | 2025-05-19 08:56 | XMS_ITS | Clinical Summary ---
Author Organization [facility] Address [address] [place] [address] Care Team Providers Care Accountancy Professor Name Role Phone Demetrio Torres MD Primary Care Provider [phone] Source Comments [facility] [employer],non-owned Affiliates and Associated Physician Practices is amultiple site organization consisting of ambulatory clinics and hospital sitesin [place] and [place]. This disclosure is being madepursuant to the Care Everywhere program and may not contain all information available regarding this patient. Last updated 18.[facility] [employer] Social History Tobacco Use Types Packs/Day Years [...] yrs (1 - 1-dose 75+ series) 2021 DEPRESSION SCREENING 08/19/2024 COVID-19 VACCINE ( - 2023-2 5 season) 2025 INFLUENZA VACCINE (#1) 2025 HEPATITIS B VACCINE [...] complete this topic Insurance MEDICARE Care Teams Accountancy Professor Relationship Specialty Start Date End Date Demetrio Torres MD [address] [place] [address] PCP - General 05/16/18
--- OUTSIDE RECORDS SUMMARY | 2025-05-19 08:56 | XMS_ITS | Clinical Summary ---
Author Organization [facility] Address [address] [place] [address] Care Team Providers Care Water Taxi Operator Name Role Phone Demetrio Torres MD [...] (Bosulif) 100 mg tabletIndication s:Chronic myelogenous leukemia Take 3 Tablets (300 mg) by mouth daily with breakfast. 90 Tablet 11 4 Active calcium carbonate + vitamin D (CALTRATE+D) 600 mg-10 mcg (400 unit) Tablet Take 1 Tablet by mouth daily. Active Active Problems Problem Noted Date Diagnosed Date Chronic myelogenous leukemia 05/16/2018 Encounters Date Type Department Care Team Description 04/20/2025 External Device Data STL ABSTRACTION Provider, Abstract 04/06/2025 External Device Data STL ABSTRACTION Provider, Abstract 03/30/2025 External Device Data STL ABSTRACTION Provider, Abstract 03/03/2025 External Device Data STL ABSTRACTION Provider, [...] [facility] [place] [address] [place] [address] Nolan Callaway MD [address] [facility] [address] [place] [address] Health Maintenance Due Date Last Done [...] Q 5 years Discontinued Insurance MEDICARE RAILROAD [facility] OPT[facility] PPO [id number] [facility] OPTIONS PPO [id number] MEDICARE RAILROAD Care Teams Water Taxi Operator Relationship Specialty Start Date End Date Demetrio Torres MD [address] [place] [phone] PCP - General Internal Medicine 05/16/18
[2025-05-19 09:02] LABS: Hematocrit 41.4 % (37.0-47.0); Hemoglobin 13.4 g/dL (12.0-15.0); Immature Granulocyte Percent A 0.5 % (0-0.5); Lymphocytes Absolute Auto 2.04 K/mm3 (0.9-3.2); Mean Corpuscular HGB Conc 32.4 g/dl (32-36); Mean Corpuscular Hemoglobin 28.6 pg (26-34); Mean Corpuscular Volume 88.3 fl (80-100); Nucleated Red Blood Cells Absolute Auto 0.000 K/mm3 (0.0-0.012); Nucleated Red Blood Cells Perc 0.0 % (0.0-0.2); Platelet Count Result 221 k/mm3 (150-375); Red Blood Count 4.69 M/mm3 (4.2-5.4); White Blood Count 7.5 K/mm3 (4.5-10.0)
[2025-05-19 10:16] LABS: Alanine Aminotransferase 34 U/L (6-35); Albumin Level 4.5 g/dL (3.5-5.1); Alkaline Phosphatase 54 U/L (38-126); Anion Gap 6 mmol/L (4-12); Aspartate Amino Transferase 31 U/L (14-36); Bilirubin,Total 0.6 mg/dL (0.2-1.3); Blood Urea Nitrogen 22 mg/dL (7-17); Calcium 9.9 mg/dL (8.4-10.2); Carbon Dioxide 28 mmol/L (22-30); Chloride 100 mmol/L (98-107); Estimated Glomerular Filt Rate 49; Glucose 95 mg/dL (65-110); Potassium 4.6 mmol/L (3.4-5.0); Sodium 134 mmol/L (137-145); Total Protein 7.7 g/dL (6.3-8.2)
== END 2025-05-19 08:43 | disposition home or self-care (01) ==
LOC: ANHLAB 08:43
PROVIDERS: PCP Internal Medicine; Visit Provider Internal Medicine Hematology & Oncology
DX: C92.10 Chronic myeloid leukemia, BCR/ABL-positive, not having achieved remission (principal)
CPT/HCPCS: 36415; 80053; 85025

== ENCOUNTER 2025-07-20 09:22 | Outpatient (CLI) | payer MEDICARE, OTHER, SELFPAY ==
[2025-07-20 09:55] LABS: Hematocrit 39.7 % (37.0-47.0); Hemoglobin 13.0 g/dL (12.0-15.0); Immature Granulocyte Percent A 0.8 % (0-0.5); Lymphocytes Absolute Auto 1.72 K/mm3 (0.9-3.2); Mean Corpuscular HGB Conc 32.7 g/dl (32-36); Mean Corpuscular Hemoglobin 28.4 pg (26-34); Mean Corpuscular Volume 86.9 fl (80-100); Nucleated Red Blood Cells Absolute Auto 0.000 K/mm3 (0.0-0.012); Nucleated Red Blood Cells Perc 0.0 % (0.0-0.2); Platelet Count Result 249 k/mm3 (150-375); Red Blood Count 4.57 M/mm3 (4.2-5.4); White Blood Count 8.3 K/mm3 (4.5-10.0)
--- OUTSIDE RECORDS SUMMARY | 2025-07-20 10:00 | XMS_ITS | Encounter Summary ---
Author Organization [facility] Address [address] [facility] [place] [address] Care Team Providers Care Rubber Insulator Name Role Phone Demetrio Torres MD Primary Care Provider [phone] Encounter Details Date Type Department Care Team (Late st Contact Info) Description 05/22/2018 Lab Requisition [facility] Care Pathology Lab [address] [place] [address] Marito Craft MD [address] [place] [address] Social History Tobacco Use Types Packs/Day [...] Report Bone Marrow Patholog y Report Case: [id number] Authorizing Provider: Marito Craft MD Collected: 05/20/2018 [...] shift. - Absolute basophilia. 05/22/2018 4:44 PM [facility] at 1644 CDT [...] phase. Correlation with clinical findings is required. BUSINESS INTELLIGENCE DIRECTOR/NW 05/22/2018 4:44 PM [facility] Peripheral Smear Description [...] normal. Platelet morphology: normal. 05/22/2018 4:44 PM [facility] Bone Marrow Aspirate [...] no ring sideroblasts seen. 05/22/2018 4:44 PM [facility] Bone Marrow Core [...] is performed on the core in the [facility] Department of Pathology, with appropriately reactive controls, and highlights a population of blasts comprising 1-2% of overall marrow cellularity. Reticulin and trichrome stains are performed on the core biopsy in the [facility] Department of Pathology, with appropriately reactive controls, to assess for possible marrow fibrosis. There is a no pathologic increase in reticulin fibrosis (MF-0) and no collagen deposition observed. BCR-ABL1 fusion transcript analysis by PCR ([id number]) performed on peripheral blood at [facility] ([employer], [address], [address], [place], [place]) identifies BCR/ABL1 p210 and p190 transcripts. 05/22/2018 4:44 PM [facility] Flow Cytometry Summary Concurrent bone marrow flow cytometry ([id number]) demonstrates no evidence of non-Hodgkin lymphoma or high-grade myeloid neoplasm. 05/22/2018 4:44 PM [facility] Clinical History 05/22/2018 4:44 PM [facility] Materials Received Received are 14 slide(s) and 2 block(s) labeled as S [id number] along with a copy of the outside pathology report. The materials originate from [place] [id number]. All materials are returned to the referring institution, along with a copy of our final report. 05/22/2018 4:44 PM [facility] Disclaimer The performance characteristics of all immunohistochemical and indirect immunofluorescence stains (if any) cited in this report were determined by the Histopathology Laboratory of [facility]. Some of these tests were [...] the attending (teaching) pathologist. 05/22/2018 4:44 PM [facility] Embedded Images 05/22/2018 4:44 PM [facility] Pathology/Cytology SPECIMEN FROM [...] ORDER ASHLEY Final Result Performing Organization Address City/State/[facility] Co de Phone Number [facility] [address] [phone] documented in this encounter Visit Diagnoses Not on filedocumented in this encounter Care Teams Rubber Insulator Relationship Specialty Start Date End Date Demetrio Torres MD [address] [place] [address] PCP - General 05/16/18 documented as of this encounter
--- OUTSIDE RECORDS SUMMARY | 2025-07-20 10:00 | XMS_ITS | Clinical Summary ---
Author Organization [facility] Address [address] [facility] [address] [place] [address] Care Team Providers Care Machine Shop Repair Technician Name Role Phone Demetrio Torres MD Primary [...] mg by mouth 2 times daily. Active lisinopril-hydr oCHLOROthiazide (ZESTORETIC) 20-12.5 mg tablet Take 1 Tablet [...] 20 mg by mouth daily. 0 Active sitaGLIPtin-met FORMIN (Janumet) 50-1,000 mg tablet Take by mouth. Active calcium carbonate + vitamin D (CALTRATE+D) 600 mg-10 mcg (400 unit) Tablet Take 1 Tablet by mouth daily. Active bosutinib (Bosulif) 100 mg tabletIndicatio ns:Chronic myelogenous leukemia (CMS/HCC) Take 3 Tablets (300 mg) by mouth daily with breakfast. 120 Tablet 4 5 Active bosutinib (Bosulif) 100 mg tabletIndicatio ns:Chronic myelogenous leukemia (CMS/HCC) Take 3 Tablets (300 mg) by mouth daily with breakfast. 90 Tablet 11 5 06/23/20 25 Discontinu ed(Reorder ) Active Problems Problem Noted Date Diagnosed Date Chronic myelogenous leukemia 05/16/2018 Encounters Date Type Department Care Team Description 07/13/2025 External Device Data STL ABSTRACTION Provider, Abstract 06/23/2025 Refill [facility] and H[facility] [address] [place] [address] Nolan Callaway MD Chronic myelogenous leukemia ([facility]/HCC) 06/10/2025 Abstract [facility] Hematology [facility] [address] [place] [address] Nolan Callaway MD 06/08/2025 Refill [facility] and Hematology [facility] [address] [place] [address] Nolan Callaway MD Chronic myelogenous leukemia ([facility]/HCC) 06/02/2025 11:15 AM CDT Office Visit [facility] and Hematology [facility] [address] [place] [address] Nolan Callaway MD Chronic myelogenous leukemia ([facility]/HCC) (Primary Dx) 06/02/2025 Refill [facility] and Hematology - [place] [address] [place] [address] Nolan Callaway MD Chronic myelogenous leukemia ([facility]/HCC) 05/25/2025 Telephone [facility] and Hematology - [place] [address] [place] [phone] Nolan Callaway MD lab results 05/21/2025 Orders Only [facility] - [place] [address] [place] [address] Nolan Callaway MD 04/20/2025 External Device Data STL ABSTRACTION Provider, [...] Sign Reading Time Taken Comments Blood Pressure 184/88 06/02/2025 11:09 AM CDT manual b/p, patient did not take bp meds today Pulse 64 06/02/2025 11:04 AM CDT Temperature 36.3 C (97.3 F) 06/02/2025 11:04 AM CDT Respiratory Rate 16 06/02/2025 11:0 4 AM CDT Oxygen Saturation 99% 06/02/2025 11: 04 AM CDT Inhaled Oxygen Concentration - - Weight 116.8 kg (257 lb 9.6 oz) 06/02/2025 11:04 AM CDT Height 176.5 cm (5' 9.5) 03/22/2022 1: 12 PM CDT Body Mass Index 37.5 03/22/2022 1:12 PM CDT Plan of Treatment Upcoming Encounters Date Type Department Care Team (Late st Contact Info) Description 11/23/2025 1:00 PM CDT Office Visit [facility] Oncology and Hematology [place] [address] [place] [address] Nolan Callaway MD [address] [facility] [address] [place] [address] Health Maintenance Due Date Last [...] Flex Sig/CT Colonography Q 5 years Discontinued Procedures Procedure Name Priority Date/Time Associated Diagnosis Comments COMPREHENSIVE METABOLIC PANEL Routine 05/19/2025 11:19 AM CDT from Last 3 Months Results * COMPREHENSIVE METABOLIC PANEL (05/19/2025 11:19 AM CDT) Blood Nolan Callaway MD CHEMISTRY ORDERABLES Final Resu lt from Last 3 Months Insurance MEDICARE [employer] [facility] [employer] PPO [id number] [facility] [employer] PPO [id number] MEDICARE RAILROAD Care Teams Machine Shop Repair Technician Relationship Specialty Start Date End Date Demetrio Torres MD [address] [place] [address] PCP - General Internal Medicine 05/16/18
--- OUTSIDE RECORDS SUMMARY | 2025-07-20 10:00 | XMS_ITS | Encounter Summary ---
Author Organization [facility] Address [address] [place] [address] Care Team Providers Care Copy Manager Name Role Phone Demetrio Torres MD Primary Care Provider Encounter Details Date Type Department Care Team (Late st Contact Info) Description 05/20/2018 [facility] [address] [place] [address] Marito Craft MD [address] [place] [address] Chronic myeloid leukemia, BCR/ABL-positive, not having [...] AM CDT) Case Report Flow Cytometry Case: [id number] Authorizing Provider: Marito Craft MD Collected: 05/20/2018 [...] the flow cytometry specimen is reviewed for director quality assurance purposes. Overall, the bone marrow aspirate specimen shows no evidence of involvement by non-Hodgkin lymphoma or a high-grade myeloid neoplasm. Correlation with clinical findings and relevant cytogenetic/molecu lar studies is required. ENDBAND CUTTER HAND/NW 05/21/2018 12:07 PM [facility] Flow Cytometry Results Differential Result Comment Flow Cell Count /uL [id number] Total Viability % 94.0 Lymphocytes % 3 Dim CD45 Region % 3 Monocytes % 9 Granulocytes % 84 05/21/2018 12:07 PM [facility] Reason for test Chronic myeloid leukemia, BCR/ABL-positive, not having achieved remission 205.10 05/21/2018 12:07 PM [facility] Client Specimen ID # [id number] 05/21/2018 12:07 PM [facility] Number of markers 19 were performed. A Flow CD10 A Flow CD13 A Flow CD20 A Flow CD2 A Flow CD14 A Flow CD117 A Flow CD11b A Flow CD11c A Flow CD5 A Flow CD19 A Flow CD33 A Flow CD34 A Flow CD45 A Flow CD7 A Flow CD56 A Flow CD64 A [place]+CD19+ A Lambda+CD19+ A Flow HLA-DR 05/21/2018 12:07 PM [facility] Disclaimer Test performed at [facility], [address] [place] [address], [address]. *The established laboratory minimum viability is 70%. [...] complexity clinical testing. 05/21/2018 12:07 PM CDT [facility] Embedded Images 12:07 PM CDT [facility] Pathology/Cytolo gy BONE MARROW SPECIMEN / Unknown 05/20/2018 10:50 AM CDT 05/20/2018 3:42 PM CDT us Marito Craft MD LAB - PATHOLOGY/CYTOLOGY ORDER ASHLEY Final Result [facility] [address] [phone] documented in this encounter Visit Diagnoses Diagnosis Chronic myeloid leukemia, BCR/ABL-positive, not having achieved remission (HCC) Chronic myeloid leukemia, without mention of having achieved remission documented in this encounter Care Teams Copy Manager Relationship Specialty Start Date End Date Demetrio Torres MD [address] [place] [address] PCP - General 05/16/18 documented as of this encounter
--- OUTSIDE RECORDS SUMMARY | 2025-07-20 10:00 | XMS_ITS | Clinical Summary ---
Author Organization [facility] Address [address] [facility] [place] [address] Care Team Providers Care Combined Rail Operator Name Role Phone Demetrio Torres MD Primary Care Provider [phone] Source Comments [facility] [employer],non-owned Affiliates and Associated Physician Practices is amultiple site organization consisting of ambulatory clinics and hospital sitesin [place], [place], [place] and [place]. This disclosure is being madepursuant to the Care Everywhere program and may not contain all information available regarding this patient. Last updated 18.[facility] Social History Tobacco Use Types Packs/Day Years [...] DEPRESSION SCREENING 08/19/2024 COVID-19 VACCINE ( - 2024-2 6 season) 2025 INFLUENZA VACCINE (#1) 2025 HEPATITIS [...] complete this topic Insurance MEDICARE Care Teams Combined Rail Operator Relationship Specialty Start Date End Date Demetrio Torres MD [address] [place] [address] PCP - General 05/16/18
--- OUTSIDE RECORDS SUMMARY | 2025-07-20 10:00 | XMS_ITS | Clinical Summary ---
Author Organization [facility] Address [facility] [place] [address] Care Team Providers Care Computer Science Instructor Name Role Phone Unavailable Primary Care Provider [...] - 1-dose 75+ series) 2021 COVID-19 Vaccine (2024-2 6 season) 2025 Influenza Adult (#1) 2025 Hepatitis A Vaccines Aged Out No long er eligible based on patient's age to complete this topic Meningococcal B Vaccine Aged Out No l onger eligible based on patient's age to complete this topic Meningococcal Vaccine Aged Out No anne sudhir eligible based on patient's age to complete this topic RSV Immunizations Under 20 Months Aged Out No longer eligible based on patient's age to complete this topic
[2025-07-20 10:09] LABS: Add Urine Microscopic? YES; Appearance Urine Cloudy (Clear); Glucose Urine UA Negative (Negative); Hemoglobin A1C 5.3 % (<5.7); Leukocyte Esterase Ur 2+ LEU/UL (Negative); Need Manual Microscopic Reviewed; Nitrate Urine Negative (Negative); Non Pathogenic Casts 0-2; Specific Grav Ur 1.011 (1.001-1.035)
[2025-07-20 10:15] LABS: Alanine Aminotransferase 22 U/L (6-35); Albumin Level 4.6 g/dL (3.5-5.1); Alkaline Phosphatase 66 U/L (38-126); Anion Gap 5 mmol/L (4-12); Aspartate Amino Transferase 36 U/L (14-36); Bilirubin,Total 0.7 mg/dL (0.2-1.3); Blood Urea Nitrogen 17 mg/dL (7-17); Calcium 10.0 mg/dL (8.4-10.2); Carbon Dioxide 28 mmol/L (22-30); Chloride 100 mmol/L (98-107); Cholesterol 145 mg/dL (0-200); Estimated Glomerular Filt Rate 45; Glucose 113 mg/dL (65-110); HDL Direct 54 mg/dL; Potassium 4.0 mmol/L (3.4-5.0); Sodium 133 mmol/L (137-145); Total Protein 8.1 g/dL (6.3-8.2); Triglycerides 154 mg/dL (<150)
[2025-07-20 10:28] LABS: Free T4 Free Thyroxine 1.30 ng/dL (0.78-2.19)
[2025-07-20 10:47] LABS: Thyroid Stimulating Hormone 2.510 uIU/mL (0.465-4.680)
== END 2025-07-20 09:23 | disposition home or self-care (01) ==
LOC: ANHLAB 09:25
PROVIDERS: PCP Internal Medicine; Visit Provider Internal Medicine
DX: E11.9 Type 2 diabetes mellitus without complications (principal); E78.2 Mixed hyperlipidemia; I10 Essential (primary) hypertension; Z79.899 Other long term (current) drug therapy; Z13.29 Encounter for screening for other suspected endocrine disorder
CPT/HCPCS: 36415; 80053; 80061; 81001; 83036; 84439; 84443; 85025; 87086

== ENCOUNTER 2025-08-13 12:46 | Outpatient (CLI) | payer MEDICARE, OTHER, SELFPAY ==
--- NOTE | ~2025-08-13 | XR_ITS ---
XR chest 2V 08/13/2025 13:06 Indication: Cough. Shortness of breath for one month. Procedure: 2 view chest Comparison: 09/18/2024 Findings: Bibasilar airspace disease. Cardiomegaly. Moderate left pleural effusion. No pneumothorax. No acute osseous abnormality. Impression: 1: Bibasilar airspace disease, left greater than right, consistent with pneumonia. 2: Moderate left pleural effusion. 3: Cardiomegaly. Reviewed, dictated and finalized at location O. CAL CLAIMS EXAMINER Impression: 1: Bibasilar airspace disease, left greater than right, consistent with pneumon ia. 2: Moderate left pleural effusion. 3: Cardiomegaly.
--- OUTSIDE RECORDS SUMMARY | 2025-08-13 12:57 | XMS_ITS | Encounter Summary ---
Author Organization [facility] Address [address] [place] [address] Care Team Providers Care Interior Design Consultant Name Role Phone Demetrio Torres MD Primary Care Provider [phone] Encounter Details Date Type Department Care Team (Late st Contact Info) Description 05/20/2018 Lab Requisition [facility] Care Pathology Lab [address] [place] [address] Marito Craft MD [address] [place] [id number] Chronic myeloid leukemia, BCR/ABL-positive, not having [...] AM CDT) Case Report Flow Cytometry Case: [id number] Authorizing Provider: Marito Craft MD Collected: 05/20/2018 [...] the flow cytometry specimen is reviewed for principal quality engineer purposes. Overall, the bone marrow aspirate specimen shows no evidence of involvement by non-Hodgkin lymphoma or a high-grade myeloid neoplasm. Correlation with clinical findings and relevant cytogenetic/molecu lar studies is required. FITTER UP/NW 05/21/2018 12:07 PM [facility] Flow Cytometry Results Differential Result Comment Flow Cell Count /uL [id number] Total Viability % 94.0 Lymphocytes % 3 Dim CD45 Region % 3 Monocytes % 9 Granulocytes % 84 05/21/2018 12:07 PM [facility] Reason for test Chronic myeloid leukemia, BCR/ABL-positive, not having achieved remission 205.10 05/21/2018 12:07 PM [facility] Client Specimen ID # [id number] 05/21/2018 12:07 PM [facility] Number of markers 19 were performed. A Flow CD10 A Flow CD13 A Flow CD20 A Flow CD2 A Flow CD14 A Flow CD117 A Flow CD11b A Flow CD11c A Flow CD5 A Flow CD19 A Flow CD33 A Flow CD34 A Flow CD45 A Flow CD7 A Flow CD56 A Flow CD64 A College+CD19+ A Lambda+CD19+ A Flow HLA-DR 05/21/2018 12:07 PM [facility] Disclaimer Test performed at [facility], [address] [place] [address], [address]. *The established laboratory minimum viability is 70%. [...] complexity clinical testing. 05/21/2018 12:07 PM CDT [facility] Embedded Images 12:07 PM CDT [facility] Pathology/Cytolo gy BONE MARROW SPECIMEN / Unknown 05/20/2018 10:50 AM CDT 05/20/2018 3:42 PM CDT us Marito Craft MD LAB - PATHOLOGY/CYTOLOGY ORDER ASHLEY Final Result [facility] [address] [phone] documented in this encounter Visit Diagnoses Diagnosis Chronic myeloid leukemia, BCR/ABL-positive, not having achieved remission (HCC) Chronic myeloid leukemia, without mention of having achieved remission documented in this encounter Care Teams Interior Design Consultant Relationship Specialty Start Date End Date Demetrio Torres MD [address] [place] [address] PCP - General 05/16/18 documented as of this encounter
--- OUTSIDE RECORDS SUMMARY | 2025-08-13 12:57 | XMS_ITS | Clinical Summary ---
Author Organization [facility] Address [address] [facility] [place] [address] Care Team Providers Care Car Hop Name Role Phone Demetrio Torres MD Primary Care Provider Source Comments [facility] [employer],non-owned Affiliates and Associated Physician Practices is amultiple site organization consisting of ambulatory clinics and hospital sitesin [place], [place], [place] and [place]. This disclosure is being madepursuant to the Care Everywhere program and may not contain all information available regarding this patient. Last updated 18.[facility] [employer] Social History Tobacco Use Types Packs/Day Years [...] complete this topic Insurance MEDICARE Care Teams Car Hop Relationship Specialty Start Date End Date Demetrio Torres MD [address] [place] [address] PCP - General 05/16/18
--- OUTSIDE RECORDS SUMMARY | 2025-08-13 12:57 | XMS_ITS | Clinical Summary ---
Author Organization [facility] Address [address] [place] [address] Care Team Providers Care Air Force Pilot Name Role Phone Demetrio Torres MD Primary [...] mg tablet Take by mouth. Activ e calcium carbonate + vitamin D (CALTRATE+D) 600 mg-10 mcg (400 unit) Tablet Take 1 Tablet by mouth daily. Active bosutinib (Bosulif) 100 mg tabletIndication s:Chronic myelogenous leukemia (CMS/HCC) Take 3 Tablets (300 mg) by mouth daily with breakfast. 120 Tablet 4 Active Active Problems Problem Noted Date Diagnosed Date Chronic myelogenous leukemia 05/16/2018 Encounters Date Type Department Care Team Description 08/09/2025 Abstract [facility] Oncology and Hematology [facility] [address] [place] [address] Nolan Callaway MD 08/03/2025 External Device Data [facility] ABSTRACTION Provider, Abstract 07/13/2025 External Device Data [facility] ABSTRACTION Provider, Abstract 06/23/2025 Refill [facility] Oncology and Hematology [facility] [address] [place] [address] Nolan Callaway MD Chronic myelogenous leukemia ([facility]) 06/10/2025 Abstract [facility] Oncology and Hematology [facility] [address] [place] [address] Nolan Callaway MD 06/08/2025 Refill [facility] Oncology and Hematology [facility] [address] [place] [address] Nolan Callaway MD Chronic myelogenous leukemia ([facility]) 06/02/2025 11:15 AM CDT Office Visit [facility] Oncology and [facility] [address] [place] [address] Nolan Callaway MD Chronic myelogenous leukemia ([facility]/HCC) (Primary Dx) 06/02/2025 Refill [facility] Oncology and Hematology [facility] [address] [place] [address] Nolan Callaway MD Chronic myelogenous leukemia ([facility]/HCC) 05/25/2025 Telephone [facility] Oncology and Hematology [facility] [address] [place] [address] Nolan Callaway MD lab results 05/21/2025 Orders Only [facility] Oncology and Hematology - [facility] [address] [facility] [address] [place] [address] Nolan Callaway MD from Last 3 Months Family History Medical [...] Description 11/23/2025 1:00 PM CDT Office Visit [facility] Oncology and Hematology [place] [address] [place] [address] Nolan Callaway MD [address] [facility] [employer] [address] [place] [address] Health Maintenance Due Date Last [...] METABOLIC PANEL (05/19/2025 11:19 AM CDT) Blood us Nolan Callaway MD CHEMISTRY ORDERABLES Final Resu lt from Last 3 Months Insurance MEDICARE [employer] [facility] [employer] PPO [id number] [facility] [employer] PPO [id number] [place] [address] Care Teams Air Force Pilot Relationship Specialty Start Date End Date Demetrio Torres MD [address] [place] [address] PCP - General Internal Medicine 05/16/18
--- OUTSIDE RECORDS SUMMARY | 2025-08-13 12:57 | XMS_ITS | Clinical Summary ---
Author Organization [facility] Address [facility] [place] [address] Care Team Providers Care Stonecutter Assistant Name Role Phone Unavailable Primary Care Provider [...]
--- OUTSIDE RECORDS SUMMARY | 2025-08-13 12:57 | XMS_ITS | Encounter Summary ---
Author Organization [facility] Address [address] [facility] [place] [address] Care Team Providers Care Shop Assistant Name Role Phone Demetrio Torres MD Primary Care Provider Encounter Details Date Type Department Care Team (Late st Contact Info) Description 05/22/2018 Lab Requisition [facility] Care Pathology Lab [address] [place] [address] Marito Craft MD [address] [place] [address] Social History Tobacco Use Types Packs/Day [...] Report Bone Marrow Patholog y Report Case: [id number] Authorizing Provider: Marito Craft MD Collected: 05/20/2018 [...] shift. - Absolute basophilia. 05/22/2018 4:44 PM [facility] at 1644 CDT AP Comment [...] phase. Correlation with clinical findings is required. CONSTRUCTION TECHNICIAN/NW 05/22/2018 4:44 PM [facility] Peripheral Smear Description CBC Data: [...] normal. Platelet morphology: normal. 05/22/2018 4:44 PM [facility] Bone Marrow Aspirate Differential count [...] no ring sideroblasts seen. 05/22/2018 4:44 PM [facility] Bone Marrow Core Biopsy and [...] is performed on the core in the [facility] Department of Pathology, with appropriately reactive controls, and highlights a population of blasts comprising 1-2% of overall marrow cellularity. Reticulin and trichrome stains are performed on the core biopsy in the [facility] Department of Pathology, with appropriately reactive controls, to assess for possible marrow fibrosis. There is a no pathologic increase in reticulin fibrosis (MF-0) and no collagen deposition observed. BCR-ABL1 fusion transcript analysis by PCR ([id number]) performed on peripheral blood at [facility] ([facility], [address], [address], [place], [place]) identifies BCR/ABL1 p210 and p190 transcripts. 05/22/2018 4:44 PM [facility] Flow Cytometry Summary Concurrent bone marrow flow cytometry ([id number]) demonstrates no evidence of non-Hodgkin lymphoma or high-grade myeloid neoplasm. 05/22/2018 4:44 PM [facility] Clinical History 05/22/2018 4:44 PM [facility] Materials Received Received are 14 slide(s) and 2 block(s) labeled as S [id number] along with a copy of the outside pathology report. The materials originate from [place] [id number]. All materials are returned to the referring institution, along with a copy of our final report. 05/22/2018 4:44 PM [facility] Disclaimer The performance characteristics of all immunohistochemical and indirect immunofluorescence stains (if any) cited in this report were determined by the [facility]. Some of these tests were developed by [...] the attending (teaching) pathologist. 05/22/2018 4:44 PM [facility] Embedded Images 05/22/2018 4:44 PM [facility] Pathology/Cytology SPECIMEN FROM BONE MARROW [...] ORDER ASHLEY Final Result Performing Organization Address City/State/[facility] Co de Phone Number [facility] [address] [phone] documented in this encounter Visit Diagnoses Not on filedocumented in this encounter Care Teams Shop Assistant Relationship Specialty Start Date End Date Demetrio Torres MD [address] [place] [address] PCP - General 05/16/18 documented as of this encounter
== END 2025-08-13 12:47 | disposition home or self-care (01) ==
PROVIDERS: PCP Internal Medicine; Visit Provider Internal Medicine
DX: R05.9 Cough, unspecified (principal); R06.02 Shortness of breath; I50.9 Heart failure, unspecified; J90 Pleural effusion, not elsewhere classified
CPT/HCPCS: 71046